=== PATIENT | female | born 1950 | race Caucasian/White ===

== ENCOUNTER 2022-01-15 11:05 | Emergency (ER) | payer OTHER ==
--- NOTE | 2022-01-15 11:33 | ERPHSYRPT ---
- History of Present Illness Time Seen by Provider: 01/15/22 11:33 Source: patient Exam Limitations: no limitations Physician History: This is a 71-year-old white female patient who is a patient at the [facility] who presents not feeling well for the last couple weeks. Her symptoms of cough, headaches, body aches, decreased appetite and mild weakness for the last couple weeks and therefore she took a COVID test on 01/12/2022. This result came back positive. Patient has a history of anxiety and hypothyroidism. Patient has had a little nausea but no vomiting and no diarrhea. She denies chest pain. She states that she does not have much shortness of breath. Timing/Duration: week(s) (1 to 2 weeks), worse Cough Quality/Degree: mild, dry cough Possible Cause: no prior episodes Modifying Factors: Improves With: coughing Associated Symptoms: cough, headache, muscle aches, sore throat, No fever, No chills, No chest pain/soreness, No shortness of breath Allergies/Adverse Reactions: Penicillins Allergy (Verified 01/15/22 11:39) Home Medications: Clonazepam [Klonopin] 0.5 mg PO TID 01/15/22 [History] Levothyroxine Sodium [Levothyroxine] 13 mcg PO DAILY 01/15/22 [History] Melatonin 20 mg PO HS 01/15/22 [History] Quetiapine Fumarate [Seroquel] 300 mg PO BID 01/15/22 [History] Travel Risk - International Travel Have you traveled outside of the country in past 3 weeks: No - Coronavirus Screening Are you exhibiting any of the following symptoms?: Yes Symptoms: Cough: New Onset, Headaches/Body Aches/Fatigue Close contact with a COVID-19 positive Pt in past 14-21 Days: No - Review of Systems Constitutional: Weakness Eyes: No Symptoms Ears, Nose, & Throat: No Symptoms Respiratory: Cough, No Dyspnea Cardiac: No Symptoms, No Chest Pain Abdominal/Gastrointestinal: No Symptoms Genitourinary Symptoms: No Symptoms Musculoskeletal: Arthralgias, Myalgias Skin: No Symptoms Neurological: Headache Psychological: No Symptoms Endocrine: No Symptoms Hematologic/Lymphatic: No Symptoms Immunological/Allergic: No Symptoms All Other Systems: Reviewed and Negative - Nursing Vital Signs Nursing Vital Signs: Initial Vital Signs Temperature 96.7 F 01/15/22 11:20 Pulse Rate 69 01/15/22 11:20 Respiratory Rate 18 01/15/22 11:20 Blood Pressure 129/79 01/15/22 11:20 O2 Sat by Pulse Oximetry 97 01/15/22 11:20 Pain Scale Pain Intensity 9 - Physical Exam General Appearance: no apparent distress, alert, obese Eye Exam: PERRL/EOMI, eyes nml inspection Ears, Nose, Throat Exam: normal ENT inspection, moist mucous membranes Neck Exam: normal inspection, non-tender, supple, full range of motion Respiratory Exam: normal breath sounds, lungs clear, airway intact, No chest tenderness, No respiratory distress Cardiovascular Exam: regular rate/rhythm, normal heart sounds, normal peripheral pulses Gastrointestinal/Abdomen Exam: soft, normal bowel sounds, No tenderness Pelvic Exam: not done Rectal Exam: not done Back Exam: normal inspection, normal range of motion, No CVA tenderness, No vertebral tenderness Extremity Exam: normal inspection, normal range of motion, pelvis stable Neurologic Exam: alert, oriented x 3, cooperative, triage technician II-XII nml as tested, normal mood/affect Skin Exam: normal color, warm, dry Lymphatic Exam: No adenopathy SpO2 Interpretation: normal O2 Delivery: Room Air - Course Nursing assessment & vital signs reviewed: Yes EKG Interpreted by Me: RATE (64), NORMAL AXIS, NORMAL INTERVALS, NORMAL QRS, Non-specific ST Changes, Other (No acute ischemic changes on today's EKG.) Ordered Tests: Active Orders 24 hr Category Date Time Status Depositing Machine Operator STAT Care 01/15/22 12:19 Active EKG-ER Only STAT Care 01/15/22 12:28 Active IV Insertion STAT Care 01/15/22 12:19 Active Pulse Oximetry (ED) STAT Care 01/15/22 12:19 Active CHEST 1 VIEW (PORTABLE) Stat Exams 01/15/22 12:19 Taken BLOOD CULTURE Stat Lab 01/15/22 12:52 Received CBC W DIFF Stat Lab 01/15/22 11:25 Completed CMP Stat Lab 01/15/22 11:25 Completed Lactic Acid Stat Lab 01/15/22 12:28 Completed [place] Screen Stat Lab 01/15/22 12:52 Completed UA W/RFX CULTURE Stat Lab 01/15/22 13:25 Completed Medication Summary Discontinued Medications Generic Name Dose Route Start Last Admin Trade Name Freq PRN Reason Stop Dose Admin Hydrocodone Bitart/Acetaminophen 5 ml 01/15/22 12:32 01/15/22 12:36 Hydrocodone/Acetaminophen 5 Ml Udcup PO 01/15/22 12:33 5 ml STAT STA Administration Hydrocodone Bitart/Acetaminophen Confirm 01/15/22 12:35 Hydrocodone/Acetaminophen 5 Ml Udcup Administered 01/15/22 12:36 Dose 5 ml .ROUTE .STK-MED ONE Methylprednisolone Sodium 0 mg 01/15/22 12:32 01/15/22 12:36 Succinate 125 mg/ Sterile IV 01/15/22 12:33 125 mg Water 2 ml STAT ONE Administration Sodium Chloride 1,000 mls @ 999 mls/hr 01/15/22 12:19 01/15/22 13:32 Sodium Chloride 0.9% 1000 Ml IV 01/15/22 13:19 Infused .Q1H1M STA Infusion Sodium Chloride Confirm 01/15/22 12:30 Sodium Chloride 0.9% 1000 Ml Administered 01/15/22 12:31 Dose 1,000 mls @ ud .ROUTE .STK-MED ONE Methylprednisolone Sodium Succinate Confirm 01/15/22 12:35 Methylprednis Sod Succ 125 Mg/2 Ml Vial Administered 01/15/22 12:36 Dose 125 mg .ROUTE .STK-MED ONE Sterile Water Confirm 01/15/22 12:35 Water For Injection,Sterile 10 Ml Vial Administered 01/15/22 12:36 Dose 10 ml IJ .STK-MED ONE Lab/Rad Data: Laboratory Result Diagrams 01/15/22 11:25 01/15/22 11:25 Laboratory Results 01/15/22 01/15/22 01/15/22 Range/Units 13:25 12:52 12:52 WBC (4.0-10.5) x10^3/uL RBC (4.1-5.4) x10^6/uL Hgb (12.0-16.0) g/dL Hct (35-47) % MCV (78-100) fL MCH (26-32) pg MCHC (32-36) g/dL RDW (11.5-14.0) % Plt Count (150-450) x10^3/uL MPV (7.5-11.0) fL Gran % (36.0-66.0) % Immature Gran % (Auto) (0.00-0.4) % Nucleat RBC Rel Count (0.00-0.1) % Eos # (Auto) (0-0.5) x10^3/uL Immature Gran # (Auto) (0.00-0.03) x10^3u/L Absolute Lymphs (auto) (1.0-4.6) x10^3/uL Absolute Monos (auto) (0.0-1.3) x10^3/uL Absolute Nucleated RBC (0.00-0.01) x10^3u/L Lymphocytes % (24.0-44.0) % Monocytes % (0.0-12.0) % Eosinophils % (0.00-5.0) % Basophils % (0.0-0.4) % Absolute Granulocytes (1.4-6.9) x10^3/uL Basophils # (0-0.4) x10^3/uL Sodium (137-145) mmol/L Potassium (3.5-5.1) mmol/L Chloride (98-107) mmol/L Carbon Dioxide (22-30) mmol/L Anion Gap (5-15) MEQ/L BUN (7-17) mg/dL Creatinine (0.52-1.04) mg/dL Estimated GFR ML/MIN Glucose (74-106) mg/dL Lactic Acid (0.4-2.0) Calcium (8.4-10.2) mg/dL Total Bilirubin (0.2-1.3) mg/dL AST (14-36) U/L ALT (0-35) U/L Alkaline Phosphatase (38-126) U/L Serum Total Protein (6.3-8.2) g/dL Albumin (3.5-5.0) g/dL Urinalys Dipstick Clnc MAIN LAB Urine Color YELLOW (YELLOW) Urine Appearance CLEAR (CLEAR) Urine pH 6.0 (5-6) Ur Specific Nunda 1.025 (1.005-1.025) POC Urine Protein Conf NEGATIVE (Negative) Urine Ketones NEGATIVE (NEGATIVE) Urine Nitrite NEGATIVE (NEGATIVE) Urine Bilirubin NEGATIVE (NEGATIVE) Urine Urobilinogen 0.2 (0-1) mg/dL Urine Leukocytes NEGATIVE (NEGATIVE) Urine WBC (Auto) NONE (0-5) /HPF Urine RBC (Auto) NONE (0-2) /HPF U Epithel Cells (Auto) NONE (FEW) /HPF Urine Bacteria (Auto) RARE (NEGATIVE) /HPF Urine RBC NEGATIVE (0-5) Irving/ul Urine Mucus (Auto) SLIGHT A (NEGATIVE) /HPF Ur Culture Indicated? NO Urine Glucose NEGATIVE (NEGATIVE) mg/dL Monoscreen NEGATIVE (Negative) Influenza Type A Ag (NEGATIVE) Influenza Type B Ag (NEGATIVE) RSV (PCR) (Negative) SARS-CoV-2 (PCR) (NEGATIVE) Group A Strep Antibody NOT DETECTED (NEGATIVE) 01/15/22 01/15/22 01/15/22 Range/Units 12:28 11:30 11:25 WBC (4.0-10.5) x10^3/uL RBC (4.1-5.4) x10^6/uL Hgb (12.0-16.0) g/dL Hct (35-47) % MCV (78-100) fL MCH (26-32) pg MCHC (32-36) g/dL RDW (11.5-14.0) % Plt Count (150-450) x10^3/uL MPV (7.5-11.0) fL Gran % (36.0-66.0) % Immature Gran % (Auto) (0.00-0.4) % Nucleat RBC Rel Count (0.00-0.1) % Eos # (Auto) (0-0.5) x10^3/uL Immature Gran # (Auto) (0.00-0.03) x10^3u/L Absolute Lymphs (auto) (1.0-4.6) x10^3/uL Absolute Monos (auto) (0.0-1.3) x10^3/uL Absolute Nucleated RBC (0.00-0.01) x10^3u/L Lymphocytes % (24.0-44.0) % Monocytes % (0.0-12.0) % Eosinophils % (0.00-5.0) % Basophils % (0.0-0.4) % Absolute Granulocytes (1.4-6.9) x10^3/uL Basophils # (0-0.4) x10^3/uL Sodium 138 (137-145) mmol/L Potassium 3.8 (3.5-5.1) mmol/L Chloride 102 (98-107) mmol/L Carbon Dioxide 33 H (22-30) mmol/L Anion Gap 7.9 (5-15) MEQ/L BUN 10 (7-17) mg/dL Creatinine 0.65 (0.52-1.04) mg/dL Estimated GFR > 60.0 ML/MIN Glucose 123 H (74-106) mg/dL Lactic Acid 3.3 H (0.4-2.0) Calcium 8.5 (8.4-10.2) mg/dL Total Bilirubin 0.40 (0.2-1.3) mg/dL AST 21 (14-36) U/L ALT 10 (0-35) U/L Alkaline Phosphatase 99 (38-126) U/L Serum Total Protein 6.6 (6.3-8.2) g/dL Albumin 3.4 L (3.5-5.0) g/dL Urinalys Dipstick Clnc Urine Color (YELLOW) Urine Appearance (CLEAR) Urine pH (5-6) Ur Specific Nunda (1.005-1.025) POC Urine Protein Conf (Negative) Urine Ketones (NEGATIVE) Urine Nitrite (NEGATIVE) Urine Bilirubin (NEGATIVE) Urine Urobilinogen (0-1) mg/dL Urine Leukocytes (NEGATIVE) Urine WBC (Auto) (0-5) /HPF Urine RBC (Auto) (0-2) /HPF U Epithel Cells (Auto) (FEW) /HPF Urine Bacteria (Auto) (NEGATIVE) /HPF Urine RBC (0-5) Irving/ul Urine Mucus (Auto) (NEGATIVE) /HPF Ur Culture Indicated? Urine Glucose (NEGATIVE) mg/dL Monoscreen (Negative) Influenza Type A Ag NEGATIVE (NEGATIVE) Influenza Type B Ag NEGATIVE (NEGATIVE) RSV (PCR) NEGATIVE (Negative) SARS-CoV-2 (PCR) POSITIVE A (NEGATIVE) Group A Strep Antibody (NEGATIVE) 01/15/22 Range/Units 11:25 WBC 5.5 (4.0-10.5) x10^3/uL RBC 4.89 (4.1-5.4) x10^6/uL Hgb 14.9 (12.0-16.0) g/dL Hct 47.2 H (35-47) % MCV 96.5 (78-100) fL MCH 30.5 (26-32) pg MCHC 31.6 L (32-36) g/dL RDW 15.1 H (11.5-14.0) % Plt Count 159 (150-450) x10^3/uL MPV 11.9 H (7.5-11.0) fL Gran % 56.0 (36.0-66.0) % Immature Gran % (Auto) 0.4 (0.00-0.4) % Nucleat RBC Rel Count 0.0 (0.00-0.1) % Eos # (Auto) 0.16 (0-0.5) x10^3/uL Immature Gran # (Auto) 0.02 (0.00-0.03) x10^3u/L Absolute Lymphs (auto) 1.84 (1.0-4.6) x10^3/uL Absolute Monos (auto) 0.34 (0.0-1.3) x10^3/uL Absolute Nucleated RBC 0.00 (0.00-0.01) x10^3u/L Lymphocytes % 33.4 (24.0-44.0) % Monocytes % 6.2 (0.0-12.0) % Eosinophils % 2.9 (0.00-5.0) % Basophils % 1.1 (0.0-0.4) % Absolute Granulocytes 3.09 (1.4-6.9) x10^3/uL Basophils # 0.06 (0-0.4) x10^3/uL Sodium (137-145) mmol/L Potassium (3.5-5.1) mmol/L Chloride (98-107) mmol/L Carbon Dioxide (22-30) mmol/L Anion Gap (5-15) MEQ/L BUN (7-17) mg/dL Creatinine (0.52-1.04) mg/dL Estimated GFR ML/MIN Glucose (74-106) mg/dL Lactic Acid (0.4-2.0) Calcium (8.4-10.2) mg/dL Total Bilirubin (0.2-1.3) mg/dL AST (14-36) U/L ALT (0-35) U/L Alkaline Phosphatase (38-126) U/L Serum Total Protein (6.3-8.2) g/dL Albumin (3.5-5.0) g/dL Urinalys Dipstick Clnc Urine Color (YELLOW) Urine Appearance (CLEAR) Urine pH (5-6) Ur Specific Nunda (1.005-1.025) POC Urine Protein Conf (Negative) Urine Ketones (NEGATIVE) Urine Nitrite (NEGATIVE) Urine Bilirubin (NEGATIVE) Urine Urobilinogen (0-1) mg/dL Urine Leukocytes (NEGATIVE) Urine WBC (Auto) (0-5) /HPF Urine RBC (Auto) (0-2) /HPF U Epithel Cells (Auto) (FEW) /HPF Urine Bacteria (Auto) (NEGATIVE) /HPF Urine RBC (0-5) Irving/ul Urine Mucus (Auto) (NEGATIVE) /HPF Ur Culture Indicated? Urine Glucose (NEGATIVE) mg/dL Monoscreen (Negative) Influenza Type A Ag (NEGATIVE) Influenza Type B Ag (NEGATIVE) RSV (PCR) (Negative) SARS-CoV-2 (PCR) (NEGATIVE) Group A Strep Antibody (NEGATIVE) - Progress Progress: improved, re-examined Air Movement: good Progress Note: 01/15/22 14:09 Chest x-ray shows bibasilar groundglass opacities consistent with COVID-19 infection. Blood Culture(s) Obtained: Yes Antibiotics given: No Counseled pt/family regarding: lab results, diagnosis, need for follow-up, rad results - Departure Departure Disposition: Home Clinical Impression: COVID-19 virus infection Condition: Stable Critical Care Time: No Referrals: [facility]OSP[facility],'S [Primary Care Provider] - Follow up/PCP as directed Additional Instructions: Drink plenty of fluids. Take your medication as prescribed. Return to the emergency department if symptoms worsen. Prescriptions: Hydrocodone/Acetaminophen [Hydrocodone-Acetamn 7.5-325/15] 5 ml PO Q8H PRN PRN #60 ml MDD 15 ml PRN Reason: Cough Prednisone 5 mg [Deltasone 5 mg] 5 mg PO TID #12 tablet
[2022-01-15] MEDS ORDERED: Sodium Chloride 0.9% 1000 ML 1,000 ML IV STA ×2 (12:19→14:08)
[2022-01-15 12:28] LABS: Absolute Neutrophil Ct (ANC) 3.09 x10^3/uL (1.4-6.9); Basophil (Absolute #) 0.06 x10^3/uL (0-0.4); Eosinophil % 2.9 % (0.00-5.0); Eosinophil (Absolute #) 0.16 x10^3/uL (0-0.5); Hematocrit 47.2 % (35-47); Hemoglobin 14.9 g/dL (12.0-16.0); Lymphocyte (Absolute #) 1.84 x10^3/uL (1.0-4.6); Lymphocytes % 33.4 % (24.0-44.0); Mean Cell Volume 96.5 fL (78-100); Mean Corpuscular Hemoglobin 30.5 pg (26-32); Mean Corpuscular Hgb Concent. 31.6 g/dL (32-36); Mean Platelet Volume 11.9 fL (7.5-11.0); Monocyte (Absolute #) 0.34 x10^3/uL (0.0-1.3); Monocytes % 6.2 % (0.0-12.0); Platelet Count 159 x10^3/uL (150-450); Red Blood Count 4.89 x10^6/uL (4.1-5.4); Red Cell Distribution Width 15.1 % (11.5-14.0); White Blood Count 5.5 x10^3/uL (4.0-10.5)
[2022-01-15] MEDS ORDERED: Sodium Chloride 0.9% 1000 ML 1,000 ML ONE ×2 (12:30→14:21)
[2022-01-15] MEDS ORDERED: HYDROCODONE-ACETAMIN 2.5-108/5 ML SOLUTION PO STA (12:32)
[2022-01-15] MEDS ORDERED: solu-MEDROL 125 MG, Sterile H2O 10 ml 2 ML IV ONE ×2 (12:32)
[2022-01-15] MEDS ORDERED: Sterile H2O 10 ml IJ ONE (12:35)
[2022-01-15] MEDS ORDERED: solu-MEDROL ONE (12:35)
[2022-01-15] MEDS ORDERED: HYDROCODONE-ACETAMIN 2.5-108/5 ML SOLUTION ONE (12:35)
[2022-01-15 13:07] LABS: INFLUENZA A NEGATIVE (NEGATIVE); INFLUENZA B NEGATIVE (NEGATIVE); RESPIRATORY SYNCTIAL VIRUS NEGATIVE (Negative)
[2022-01-15 13:18] LABS: SARS-CoV-2 Xpert Express POSITIVE (NEGATIVE)
[2022-01-15 13:27] VITALS: BP 160/88
[2022-01-15 13:37] LABS: ALBUMIN 3.4 g/dL (3.5-5.0); ALKALINE PHOSPHATASE 99 U/L (38-126); ANION GAP 7.9 MEQ/L (5-15); BLOOD UREA NITROGEN 10 mg/dL (7-17); CHLORIDE 102 mmol/L (98-107); Calcium 8.5 mg/dL (8.4-10.2); Carbon Dioxide 33 mmol/L (22-30); Creatinine 1 0.65 mg/dL (0.52-1.04); EST GLOMERULAR FILTRATION RATE > 60.0 ML/MIN; Glucose 123 mg/dL (74-106); Potassium 3.8 mmol/L (3.5-5.1); SGOT/AST 21 U/L (14-36); SGPT/ALT 10 U/L (0-35); SODIUM 138 mmol/L (137-145); Total Protein 6.6 g/dL (6.3-8.2)
[2022-01-15 13:46] LABS: Appearance CLEAR (CLEAR); Bacteria RARE /HPF (NEGATIVE); Bilirubin NEGATIVE (NEGATIVE); Glucose NEGATIVE (NEGATIVE); Ketones NEGATIVE (NEGATIVE); Mucus SLIGHT /HPF (NEGATIVE); RBC NEGATIVE Ery/ul (0-5); Specific Gravity 1.025 (1.005-1.025)
[2022-01-15 13:47] LABS: Dipstick done @ ? MAIN LAB; Nitrite NEGATIVE (NEGATIVE); Protein,Urine Dip NEGATIVE (Negative); Urine Cultured Indicated? NO; Urobilinogen 0.2 mg/dL (0-1)
[2022-01-15 14:04] VITALS: PULSE 74; O2SAT 94
--- NOTE | 2022-01-15 19:13 | XRAY ---
Indication: Cough. Positive Covid 19. Comparison: None Portable chest demonstrates hazy right base groundglass airspace disease. Incidental scattered tiny calcified granulomas. Heart not enlarged for portable technique. Bony thorax intact with mild osteopenia and degenerative changes.
== END 2022-01-15 14:42 | disposition home or self-care (01) ==
LOC: ED 11:05
DX: U07.1 COVID-19 (principal); R05.9 Cough, unspecified; R51.9 Headache, unspecified; M79.10 Myalgia, unspecified site; R53.1 Weakness; Z79.891 Long term (current) use of opiate analgesic; Z79.52 Long term (current) use of systemic steroids; Z79.899 Other long term (current) drug therapy
CPT/HCPCS: 0241U; 36000; 36415; 71045; 80053; 81015; 83605; 85025; 86308; 87040; 87651; 93005; 93041; 94760; 96360; 96374; 99284; 96361; J2930; A9270-GY

== ENCOUNTER 2022-01-21 23:15 | Emergency (ER) | payer OTHER ==
--- NOTE | 2022-01-21 23:48 | ERPHSYRPT ---
- History of Present Illness Time Seen by Provider: 01/21/22 23:48 Source: patient, family Exam Limitations: no limitations Patient Subjective Stated Complaint: son states "She has covid and is not getting better." Triage Nursing Assessment: pt came into the er via wheelchair; pt is axo x2; c/o "not feeling well"; pt denies pain; clear lung sounds in all lobes; active bowel sounds in all quads; denies N/V/D; no cough present; vitals wnl; skin PDW Physician History: This is a 71-year-old white female patient who returns emergency department after being evaluated on 01/15/2022 for similar but worsening symptoms of flu. While home, the patient's appetite has decreased. She is also had change in her mental status. She is not eating or drinking well per patient's son. Patient was diagnosed with COVID-19 infection but family is concerned because she is not actually worse and not improving. She has no chest pain. She does not complain of shortness of breath but she does have a cough. She has no abdominal pain. She has had no vomiting or diarrhea. She was discharged home with hydrocodone elixir for her cough and prednisone also for her cough. She has not had a measured fever at home. Patient has history of anxiety and hypothyroidism Timing/Duration: day(s), worse Cough Quality/Degree: mild Possible Cause: no prior episodes Associated Symptoms: cough, muscle aches, shortness of breath Allergies/Adverse Reactions: Penicillins Allergy (Verified 01/21/22 23:24) Home Medications: Clonazepam [Klonopin] 0.5 mg PO TID 01/15/22 [History] Levothyroxine Sodium [Levothyroxine] 13 mcg PO DAILY 01/15/22 [History] Melatonin 20 mg PO HS 01/15/22 [History] Quetiapine Fumarate [Seroquel] 300 mg PO BID 01/15/22 [History] Hx Tetanus, Diphtheria Vaccination/Date Given: No (unknown) Hx Influenza Vaccination/Date Given: No Hx Pneumococcal Vaccination/Date Given: No Travel Risk - International Travel Have you traveled outside of the country in past 3 weeks: No - Coronavirus Screening Are you exhibiting any of the following symptoms?: Yes Symptoms: Cough: New Onset, Headaches/Body Aches/Fatigue Close contact with a COVID-19 positive Pt in past 14-21 Days: Yes - Vaccine Status Have you recieved a Covid-19 vaccination: No - Review of Systems Constitutional: Weakness Eyes: No Symptoms Ears, Nose, & Throat: No Symptoms Respiratory: Cough Cardiac: No Symptoms Abdominal/Gastrointestinal: Appetite Changes, No Abdominal Pain, No Nausea, No Vomiting, No Diarrhea Genitourinary Symptoms: No Symptoms Musculoskeletal: Arthralgias, Myalgias Skin: No Symptoms Neurological: Other (Altered mental status per family) Psychological: No Symptoms Endocrine: No Symptoms Hematologic/Lymphatic: No Symptoms Immunological/Allergic: No Symptoms All Other Systems: Reviewed and Negative - Past Medical History Pertinent Past Medical History: Yes Cardiac History: High Cholesterol Endocrine Medical History: Hypothyroidism Musculoskeletal History: Osteoporosis GI Medical History: Irritable Bowel Psycho-Social History: Anxiety, Depression - Past Surgical History Past Surgical History: Yes Musculoskeletal: Orthopedic Surgery Female Surgical History: Tubal Ligation, Lumpectomy Other Surgical History: lumpectomy in breast several times, lump in foot, biopsy of cervix that was precancerous - Social History Smoking Status: Current every day smoker Exposure to second hand smoke: Yes Drug Use: none Patient Lives Alone: No - Nursing Vital Signs Nursing Vital Signs: Initial Vital Signs Temperature 98.8 F 01/21/22 23:27 Pulse Rate 85 01/21/22 23:27 Respiratory Rate 14 01/21/22 23:27 Blood Pressure 140/91 01/21/22 23:27 O2 Sat by Pulse Oximetry 94 L 01/21/22 23:27 Pain Scale Pain Intensity 0 - Physical Exam General Appearance: no apparent distress, alert, anxiety Eye Exam: PERRL/EOMI, eyes nml inspection Ears, Nose, Throat Exam: pharynx normal, dry mucous membranes Neck Exam: normal inspection, non-tender, supple, full range of motion Respiratory Exam: airway intact, rhonchi (Mild rhonchi left greater than right), No chest tenderness, No respiratory distress, No accessory muscle use Cardiovascular Exam: regular rate/rhythm, normal heart sounds, normal peripheral pulses Gastrointestinal/Abdomen Exam: soft, normal bowel sounds, No tenderness Pelvic Exam: not done Rectal Exam: not done Back Exam: normal inspection, normal range of motion, No CVA tenderness, No vertebral tenderness Extremity Exam: normal inspection, normal range of motion, pelvis stable Neurologic Exam: alert, oriented x 3, cooperative, plant anatomist II-XII 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 as tested, normal mood/affect Skin Exam: normal color, warm, dry Lymphatic Exam: No adenopathy SpO2 Interpretation: borderline oxygenation SpO2: 94 O2 Delivery: Room Air Ordered Tests: Active Orders 24 hr Category Date Time 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 Care 01/22/22 00:09 Active IV Insertion STAT Care 01/22/22 00:09 Active Pulse Oximetry (ED) STAT Care 01/22/22 00:09 Active HEAD WITHOUT CONTRAST [CT] Stat Exams 01/22/22 00:10 Taken BLOOD CULTURE Stat Lab 01/22/22 00:42 Received CBC W DIFF Stat Lab 01/22/22 00:10 Completed CMP Stat Lab 01/22/22 00:10 Completed CULTURE,URINE Stat Lab 01/22/22 00:42 Received Lactic Acid Stat Lab 01/22/22 00:31 Completed [place] Screen Stat Lab 01/22/22 00:10 Completed UA W/RFX CULTURE Stat Lab 01/22/22 00:42 Completed Medication Summary Generic Name Dose Route Start Last Admin Trade Name Freq PRN Reason Stop Dose Admin Levofloxacin/Dextrose 500 mg in 100 mls @ 100 mls/hr 01/22/22 01:12 01/22/22 01:46 Levofloxacin 500mg/100ml D5w IV 01/22/22 02:11 100 mls/hr STAT STA 100 mls/hr Administration Sodium Chloride 500 mls @ 500 mls/hr 01/22/22 01:22 01/22/22 01:46 Sodium Chloride 0.9% 500 Ml IV 01/22/22 02:21 500 mls/hr .Q1H ONE Administration Discontinued Medications Generic Name Dose Route Start Last Admin Trade Name Freq PRN Reason Stop Dose Admin Sodium Chloride 1,000 mls @ 999 mls/hr 01/22/22 00:09 01/22/22 01:32 Sodium Chloride 0.9% 1000 Ml IV 01/22/22 01:09 Infused .Q1H1M STA Infusion Sodium Chloride Confirm 01/22/22 00:24 Sodium Chloride 0.9% 1000 Ml Administered 01/22/22 00:25 Dose 1,000 mls @ ud .ROUTE .STK-MED ONE Levofloxacin/Dextrose Confirm 01/22/22 01:44 Levofloxacin 500mg/100ml D5w Administered 01/22/22 01:45 Dose 500 mg in 100 mls @ ud IV .STK-MED ONE Sodium Chloride Confirm 01/22/22 01:44 Sodium Chloride 0.9% 500 Ml Administered 01/22/22 01:45 Dose 500 mls @ ud IV .STK-MED ONE Ondansetron HCl 4 mg 01/22/22 00:09 01/22/22 00:25 Ondansetron Hcl 4 Mg/2 Ml Vial IV 01/22/22 00:10 4 mg STAT STA Administration Ondansetron HCl Confirm 01/22/22 00:24 Ondansetron Hcl 4 Mg/2 Ml Vial Administered 01/22/22 00:25 Dose 4 mg .ROUTE .STK-MED ONE Potassium Chloride 20 meq 01/22/22 00:58 01/22/22 01:02 Potassium Chloride Tab 10 Meq Tab PO 01/22/22 00:59 20 meq STAT ONE Administration Potassium Chloride Confirm 01/22/22 01:01 Potassium Chloride Tab 10 Meq Tab Administered 01/22/22 01:02 Dose 20 meq PO .STK-MED ONE Lab/Rad Data: Laboratory Result Diagrams 01/22/22 00:10 01/22/22 00:10 Laboratory Results 01/22/22 01/22/22 01/22/22 Range/Units 00:42 00:42 00:42 WBC (4.0-10.5) x10^3/uL RBC (4.1-5.4) x10^6/uL Hgb (12.0-16.0) g/dL Hct (35-47) % MCV (78-100) fL MCH (26-32) pg MCHC (32-36) g/dL RDW (11.5-14.0) % Plt Count (150-450) x10^3/uL MPV (7.5-11.0) fL Gran % (36.0-66.0) % Immature Gran % (Auto) (0.00-0.4) % Nucleat RBC Rel Count (0.00-0.1) % Eos # (Auto) (0-0.5) x10^3/uL Immature Gran # (Auto) (0.00-0.03) x10^3u/L Absolute Lymphs (auto) (1.0-4.6) x10^3/uL Absolute Monos (auto) (0.0-1.3) x10^3/uL Absolute Nucleated RBC (0.00-0.01) x10^3u/L Lymphocytes % (24.0-44.0) % Monocytes % (0.0-12.0) % Eosinophils % (0.00-5.0) % Basophils % (0.0-0.4) % Absolute Granulocytes (1.4-6.9) x10^3/uL Basophils # (0-0.4) x10^3/uL Sodium (137-145) mmol/L Potassium (3.5-5.1) mmol/L Chloride (98-107) mmol/L Carbon Dioxide (22-30) mmol/L Anion Gap (5-15) MEQ/L BUN (7-17) mg/dL Creatinine (0.52-1.04) mg/dL Estimated GFR ML/MIN Glucose (74-106) mg/dL Lactic Acid (0.4-2.0) Calcium (8.4-10.2) mg/dL Total Bilirubin (0.2-1.3) mg/dL AST (14-36) U/L ALT (0-35) U/L Alkaline Phosphatase (38-126) U/L Serum Total Protein (6.3-8.2) g/dL Albumin (3.5-5.0) g/dL Urinalys Dipstick Clnc MAIN LAB Urine Color YELLOW (YELLOW) Urine Appearance CLEAR (CLEAR) Urine pH 6.0 (5-6) Ur Specific [place] 1.025 (1.005-1.025) POC Urine Protein Conf TRACE A (Negative) Urine Ketones NEGATIVE (NEGATIVE) Urine Nitrite NEGATIVE (NEGATIVE) Urine Bilirubin NEGATIVE (NEGATIVE) Urine Urobilinogen 0.2 (0-1) mg/dL Urine Leukocytes MODERATE A (NEGATIVE) Urine WBC (Auto) 16-25 A (0-5) /HPF Urine RBC (Auto) 3-5 A (0-2) /HPF U Epithel Cells (Auto) RARE (FEW) /HPF Urine Bacteria (Auto) RARE (NEGATIVE) /HPF Urine RBC NEGATIVE (0-5) [place]/ul Urine Mucus (Auto) SLIGHT A (NEGATIVE) /HPF Ur Culture Indicated? YES Urine Glucose NEGATIVE (NEGATIVE) mg/dL Monoscreen (Negative) Influenza Type A Ag NEGATIVE (NEGATIVE) Influenza Type B Ag NEGATIVE (NEGATIVE) RSV (PCR) NEGATIVE (Negative) SARS-CoV-2 (PCR) NEGATIVE (NEGATIVE) Group A Strep Antibody NOT DETECTED (NEGATIVE) 01/22/22 01/22/22 01/22/22 Range/Units 00:31 00:10 00:10 WBC (4.0-10.5) x10^3/uL RBC (4.1-5.4) x10^6/uL Hgb (12.0-16.0) g/dL Hct (35-47) % MCV (78-100) fL MCH (26-32) pg MCHC (32-36) g/dL RDW (11.5-14.0) % Plt Count (150-450) x10^3/uL MPV (7.5-11.0) fL Gran % (36.0-66.0) % Immature Gran % (Auto) (0.00-0.4) % Nucleat RBC Rel Count (0.00-0.1) % Eos # (Auto) (0-0.5) x10^3/uL Immature Gran # (Auto) (0.00-0.03) x10^3u/L Absolute Lymphs (auto) (1.0-4.6) x10^3/uL Absolute Monos (auto) (0.0-1.3) x10^3/uL Absolute Nucleated RBC (0.00-0.01) x10^3u/L Lymphocytes % (24.0-44.0) % Monocytes % (0.0-12.0) % Eosinophils % (0.00-5.0) % Basophils % (0.0-0.4) % Absolute Granulocytes (1.4-6.9) x10^3/uL Basophils # (0-0.4) x10^3/uL Sodium 135 L (137-145) mmol/L Potassium 3.3 L (3.5-5.1) mmol/L Chloride 96 L (98-107) mmol/L Carbon Dioxide 36 H (22-30) mmol/L Anion Gap 7.1 (5-15) MEQ/L BUN 10 (7-17) mg/dL Creatinine 0.65 (0.52-1.04) mg/dL Estimated GFR > 60.0 ML/MIN Glucose 101 (74-106) mg/dL Lactic Acid 1.9 (0.4-2.0) Calcium 8.5 (8.4-10.2) mg/dL Total Bilirubin 0.60 (0.2-1.3) mg/dL AST 17 (14-36) U/L ALT 11 (0-35) U/L Alkaline Phosphatase 113 (38-126) U/L Serum Total Protein 6.6 (6.3-8.2) g/dL Albumin 3.7 (3.5-5.0) g/dL Urinalys Dipstick Clnc Urine Color (YELLOW) Urine Appearance (CLEAR) Urine pH (5-6) Ur Specific [place] (1.005-1.025) POC Urine Protein Conf (Negative) Urine Ketones (NEGATIVE) Urine Nitrite (NEGATIVE) Urine Bilirubin (NEGATIVE) Urine Urobilinogen (0-1) mg/dL Urine Leukocytes (NEGATIVE) Urine WBC (Auto) (0-5) /HPF Urine RBC (Auto) (0-2) /HPF U Epithel Cells (Auto) (FEW) /HPF Urine Bacteria (Auto) (NEGATIVE) /HPF Urine RBC (0-5) Irving/ul Urine Mucus (Auto) (NEGATIVE) /HPF Ur Culture Indicated? Urine Glucose (NEGATIVE) mg/dL Monoscreen NEGATIVE (Negative) Influenza Type A Ag (NEGATIVE) Influenza Type B Ag (NEGATIVE) RSV (PCR) (Negative) SARS-CoV-2 (PCR) (NEGATIVE) Group A Strep Antibody (NEGATIVE) 01/22/22 Range/Units 00:10 WBC 9.5 (4.0-10.5) x10^3/uL RBC 4.93 (4.1-5.4) x10^6/uL Hgb 14.8 (12.0-16.0) g/dL Hct 46.0 (35-47) % MCV 93.3 (78-100) fL MCH 30.0 (26-32) pg MCHC 32.2 (32-36) g/dL RDW 15.0 H (11.5-14.0) % Plt Count 236 (150-450) x10^3/uL MPV 10.7 (7.5-11.0) fL Gran % 69.0 H (36.0-66.0) % Immature Gran % (Auto) 0.3 (0.00-0.4) % Nucleat RBC Rel Count 0.0 (0.00-0.1) % Eos # (Auto) 0.07 (0-0.5) x10^3/uL Immature Gran # (Auto) 0.03 (0.00-0.03) x10^3u/L Absolute Lymphs (auto) 2.02 (1.0-4.6) x10^3/uL Absolute Monos (auto) 0.77 (0.0-1.3) x10^3/uL Absolute Nucleated RBC 0.00 (0.00-0.01) x10^3u/L Lymphocytes % 21.3 L (24.0-44.0) % Monocytes % 8.1 (0.0-12.0) % Eosinophils % 0.7 (0.00-5.0) % Basophils % 0.6 (0.0-0.4) % Absolute Granulocytes 6.54 (1.4-6.9) x10^3/uL Basophils # 0.06 (0-0.4) x10^3/uL Sodium (137-145) mmol/L Potassium (3.5-5.1) mmol/L Chloride (98-107) mmol/L Carbon Dioxide (22-30) mmol/L Anion Gap (5-15) MEQ/L BUN (7-17) mg/dL Creatinine (0.52-1.04) mg/dL Estimated GFR ML/MIN Glucose (74-106) mg/dL Lactic Acid (0.4-2.0) Calcium (8.4-10.2) mg/dL Total Bilirubin (0.2-1.3) mg/dL AST (14-36) U/L ALT (0-35) U/L Alkaline Phosphatase (38-126) U/L Serum Total Protein (6.3-8.2) g/dL Albumin (3.5-5.0) g/dL Urinalys Dipstick Clnc Urine Color (YELLOW) Urine Appearance (CLEAR) Urine pH (5-6) Ur Specific [place] (1.005-1.025) POC Urine Protein Conf (Negative) Urine Ketones (NEGATIVE) Urine Nitrite (NEGATIVE) Urine Bilirubin (NEGATIVE) Urine Urobilinogen (0-1) mg/dL Urine Leukocytes (NEGATIVE) Urine WBC (Auto) (0-5) /HPF Urine RBC (Auto) (0-2) /HPF U Epithel Cells (Auto) (FEW) /HPF Urine Bacteria (Auto) (NEGATIVE) /HPF Urine RBC (0-5) [place]/ul Urine Mucus (Auto) (NEGATIVE) /HPF Ur Culture Indicated? Urine Glucose (NEGATIVE) mg/dL Monoscreen (Negative) Influenza Type A Ag (NEGATIVE) Influenza Type B Ag (NEGATIVE) RSV (PCR) (Negative) SARS-CoV-2 (PCR) (NEGATIVE) Group A Strep Antibody (NEGATIVE) - Progress Progress: improved Air Movement: good Progress Note: 01/22/22 01:48 Medically, the patient states she is feeling better. She appears more awake alert and oriented. She is conversant. Blood Culture(s) Obtained: Yes Antibiotics given: Yes Counseled pt/family regarding: lab results, diagnosis, need for follow-up, rad results - Departure Departure Disposition: Home Clinical Impression: UTI (urinary tract infection), COVID-19 virus infection Condition: Stable Critical Care Time: No Referrals: HOSPITAL,'S [Primary Care Provider] - Follow up/PCP as directed Additional Instructions: Drink plenty of clear liquids before advancing diet. Take your antibiotics as prescribed. Prescriptions: Ciprofloxacin [Cipro 500 MG] 500 mg PO BID #14 tablet
[2022-01-22] MEDS ORDERED: Zofran 4 MG/2 ML VIAL IV STA (00:09)
[2022-01-22] MEDS ORDERED: Sodium Chloride 0.9% 1000 ML 1,000 ML IV STA (00:09)
[2022-01-22 00:21] LABS: Absolute Neutrophil Ct (ANC) 6.54 x10^3/uL (1.4-6.9); Basophil (Absolute #) 0.06 x10^3/uL (0-0.4); Eosinophil % 0.7 % (0.00-5.0); Eosinophil (Absolute #) 0.07 x10^3/uL (0-0.5); Hemoglobin 14.8 g/dL (12.0-16.0); Lymphocyte (Absolute #) 2.02 x10^3/uL (1.0-4.6); Lymphocytes % 21.3 % (24.0-44.0); Mean Cell Volume 93.3 fL (78-100); Mean Corpuscular Hgb Concent. 32.2 g/dL (32-36); Mean Platelet Volume 10.7 fL (7.5-11.0); Monocyte (Absolute #) 0.77 x10^3/uL (0.0-1.3); Monocytes % 8.1 % (0.0-12.0); Platelet Count 236 x10^3/uL (150-450); Red Blood Count 4.93 x10^6/uL (4.1-5.4); White Blood Count 9.5 x10^3/uL (4.0-10.5)
[2022-01-22] MEDS ORDERED: Sodium Chloride 0.9% 1000 ML 1,000 ML ONE (00:24)
[2022-01-22] MEDS ORDERED: Zofran 4 MG/2 ML VIAL ONE (00:24)
[2022-01-22 00:36] LABS: ALBUMIN 3.7 g/dL (3.5-5.0); ALKALINE PHOSPHATASE 113 U/L (38-126); ANION GAP 7.1 MEQ/L (5-15); BLOOD UREA NITROGEN 10 mg/dL (7-17); CHLORIDE 96 mmol/L (98-107); Calcium 8.5 mg/dL (8.4-10.2); Carbon Dioxide 36 mmol/L (22-30); Creatinine 1 0.65 mg/dL (0.52-1.04); EST GLOMERULAR FILTRATION RATE > 60.0 ML/MIN; Glucose 101 mg/dL (74-106); Potassium 3.3 mmol/L (3.5-5.1); SGOT/AST 17 U/L (14-36); SGPT/ALT 11 U/L (0-35); SODIUM 135 mmol/L (137-145); Total Protein 6.6 g/dL (6.3-8.2)
[2022-01-22] MEDS ORDERED: Klor Con PO ONE ×2 (00:58→01:01)
[2022-01-22 01:06] LABS: Appearance CLEAR (CLEAR); Bilirubin NEGATIVE (NEGATIVE); Dipstick done @ ? MAIN LAB; Glucose NEGATIVE (NEGATIVE); Ketones NEGATIVE (NEGATIVE); Nitrite NEGATIVE (NEGATIVE); Protein,Urine Dip TRACE (Negative); RBC NEGATIVE Ery/ul (0-5); Specific Gravity 1.025 (1.005-1.025); Urobilinogen 0.2 mg/dL (0-1)
[2022-01-22] MEDS ORDERED: Levofloxacin 500MG/100ML D5W 500 MG/100 ML BAG IV STA (01:12)
[2022-01-22 01:22] LABS: Bacteria RARE /HPF (NEGATIVE); Epithelial Cells RARE /HPF (FEW); Mucus SLIGHT /HPF (NEGATIVE)
[2022-01-22] MEDS ORDERED: Sodium Chloride 0.9% 500 ML 500 ML IV ONE ×2 (01:22→01:44)
[2022-01-22 01:27] LABS: Urine Cultured Indicated? YES
[2022-01-22 01:36] LABS: INFLUENZA A NEGATIVE (NEGATIVE); INFLUENZA B NEGATIVE (NEGATIVE); RESPIRATORY SYNCTIAL VIRUS NEGATIVE (Negative); SARS-CoV-2 Xpert Express NEGATIVE (NEGATIVE)
[2022-01-22] MEDS ORDERED: Levofloxacin 500MG/100ML D5W 500 MG/100 ML BAG IV ONE (01:44)
[2022-01-22 02:48] VITALS: O2SAT 95
[2022-01-22 03:09] VITALS: BP 148/89; PULSE 67
--- NOTE | 2022-01-22 08:53 | XRAY ---
Indication: Altered mental status. Multiple contiguous axial images obtained through the head without contrast. Comparison: None Age-appropriate global atrophy and mild/moderate periventricular degenerative micro-ischemia bilaterally. Remote lacunar infarct left basal ganglia. No acute intracranial hemorrhage, abnormal extra-axial fluid collection, or mass effect. Fourth ventricle is midline without hydrocephalus. Bony calvarium intact. Visualized paranasal sinuses and mastoid air cells are clear. Impression: Nonacute senile brain with remote lacunar infarct left basal ganglia. Comment: Preliminary interpretation made by [facility]. No critical discrepancy.
== END 2022-01-22 03:09 | disposition home or self-care (01) ==
LOC: ED 23:15
DX: U07.1 COVID-19 (principal); N39.0 Urinary tract infection, site not specified; R41.82 Altered mental status, unspecified; R05.9 Cough, unspecified; E78.5 Hyperlipidemia, unspecified; Z72.0 Tobacco use; Z79.899 Other long term (current) drug therapy; Z28.310 Unvaccinated for COVID-19
CPT/HCPCS: 0241U; 36000; 36415; 70450; 80053; 81015; 83605; 85025; 86308; 87040; 87086; 87651; 93041; 94760; 96360; 96374; 99284; 96365; J1956; J2405; A9270-GY

== ENCOUNTER 2022-03-04 14:06 | Observation (INO) | payer OTHER ==
--- NOTE | 2022-03-04 14:12 | ERPHSYRPT ---
- History of Present Illness Time Seen by Provider: 03/04/22 14:12 Source: patient, EMS, old records Exam Limitations: clinical condition Physician History: This is a 71-year-old white female patient who is typically seen at the [facility] and recently was evaluated at [facility] and was admitted to their facility secondary to a head injury. Patient was discharged to home yesterday. Patient is living with her son and he states she was a little confused last night. However, this morning she seems more confused. Patient is a poor historian. She denies headache. She denies chest pain. She denies shortness of breath. She was diagnosed with COVID-19 infection the end of December. She was diagnosed with a urinary tract infection in the first week in January 2022. Patient was brought into the emergency department by ambulance service from home. Timing/Duration: today Severity: moderate Character of Deficits: other (Confused) Deficits: cannot stand, cannot walk Baseline/Normal Cognition: alert but confused Current Cognition: alert but confused Associated Symptoms: confusion, No chest pain Allergies/Adverse Reactions: Penicillins Allergy (Verified 03/04/22 15:42) Home Medications: Clonazepam [Klonopin] 0.5 mg PO BID 01/15/22 [History] Albuterol Sulfate [Albuterol Sulfate Hfa] 2 puff PO QID PRN 03/04/22 [History] Atorvastatin Calcium [Lipitor] 1 tab PO HS 03/04/22 [History] Fluticasone Propion/Salmeterol [Fluticasone-Salmeterol 250-50] 1 puff PO BID PRN 03/04/22 [History] Levothyroxine Sodium 50 Mcg [Synthroid 50 Mcg] 1 tab PO DAILY 03/04/22 [History] Melatonin 1 tab PO HS 03/04/22 [History] Quetiapine Fumarate 1 tab PO BID 03/04/22 [History] Trazodone HCl 200 mg PO HS 03/04/22 [History] predniSONE [Prednisone] 1 tab PO DAILY 03/04/22 [History] Hx Tetanus, Diphtheria Vaccination/Date Given: No (unknown) Hx Influenza Vaccination/Date Given: No Hx Pneumococcal Vaccination/Date Given: No Travel Risk - International Travel Have you traveled outside of the country in past 3 weeks: No - Coronavirus Screening Are you exhibiting any of the following symptoms?: No Close contact with a COVID-19 positive Pt in past 14-21 Days: No - Vaccine Status Have you recieved a Covid-19 vaccination: No - Review of Systems Constitutional: No Symptoms Eyes: No Symptoms Ears, Nose, & Throat: No Symptoms Respiratory: No Symptoms Cardiac: Orthopnea Abdominal/Gastrointestinal: No Symptoms Genitourinary Symptoms: No Symptoms Musculoskeletal: No Symptoms Skin: No Symptoms Neurological: Other (Confused and unable to follow commands) Psychological: No Symptoms Endocrine: No Symptoms Hematologic/Lymphatic: No Symptoms Immunological/Allergic: No Symptoms All Other Systems: Reviewed and Negative - Past Medical History Pertinent Past Medical History: Yes Cardiac History: High Cholesterol Endocrine Medical History: Hypothyroidism Musculoskeletal History: Osteoporosis GI Medical History: Irritable Bowel Psycho-Social History: Anxiety, Depression - Past Surgical History Past Surgical History: Yes Musculoskeletal: Orthopedic Surgery Female Surgical History: Tubal Ligation, Lumpectomy Other Surgical History: lumpectomy in breast several times, lump in foot, biopsy of cervix that was precancerous - Social History Smoking Status: Current every day smoker Exposure to second hand smoke: Yes Drug Use: none Patient Lives Alone: No - Nursing Vital Signs Nursing Vital Signs: Initial Vital Signs Temperature 98.1 F 03/04/22 14:07 Pulse Rate 74 03/04/22 14:07 Respiratory Rate 28 H 03/04/22 14:07 Blood Pressure 134/105 03/04/22 14:07 O2 Sat by Pulse Oximetry 99 03/04/22 14:07 Pain Scale Pain Intensity 0 - [place] Coma Scale Best Eye Response (Mark): (4) open spontaneously Best Verbal Response (Mark): (4) confused conversation Best Motor Response ([place]): (5) localizes to pain [place] Total: 13 - Physical Exam General Appearance: anxiety Eye Exam: bilateral eye: normal inspection, PERRL, EOMI Ears, Nose, Throat Exam: dry mucous membranes Neck Exam: normal inspection, non-tender, supple, full range of motion Respiratory: normal breath sounds, lungs clear, airway intact, No chest tenderness, No respiratory distress Cardiovascular: regular rate/rhythm, normal heart sounds, normal peripheral pulses Gastrointestinal: soft, normal bowel sounds, No tenderness Pelvic Exam: not done Rectal Exam: not done Back Exam: normal inspection, normal range of motion, CVA tenderness Extremity Exam: normal range of motion (Patient is moving all of her extremities), pelvis stable, other (Skin is very dry on all her extremities.) Mental Status: alert, disoriented to person, disoriented to place, other (Vicente fernandez confused) 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 Exam: tongue midline, No facial droop Skin Exam: dry SpO2 Interpretation: normal O2 Delivery: Room Air - Course Nursing assessment & vital signs reviewed: Yes EKG Interpreted by Me: RATE (73), Sinus Rhythm, NORMAL AXIS, NORMAL INTERVALS, NORMAL QRS, Non-specific ST Changes, Other (No acute ischemic changes on today's EKG) Ordered Tests: Active Orders 24 hr Category Date Time Status [employer] Inspector STAT Care 03/04/22 14:37 Active Catheter-[place] Sandoval STAT Care 03/04/22 14:26 Active EKG-ER Only STAT Care 03/04/22 14:37 Active IV Insertion STAT Care 03/04/22 14:26 Active IV Insertion-2nd Peripheral STAT Care 03/04/22 14:37 Active NPO (ED) STAT Care 03/04/22 14:26 Active HEAD WITHOUT CONTRAST [CT] Stat Exams 03/04/22 14:27 Completed BLOOD CULTURE Stat Lab 03/04/22 14:35 Received CBC W DIFF Stat Lab 03/04/22 14:25 Completed CMP Stat Lab 03/04/22 14:25 Completed CULTURE,URINE Stat Lab 03/04/22 14:38 Ordered T4 (Thyroxine) Stat Lab 03/04/22 Ordered TSH [TSH, 3RD Generation] Stat Lab 03/04/22 16:51 Ordered UA W/RFX CULTURE Stat Lab 03/04/22 14:36 Completed Medication Summary Generic Name Dose Route Start Last Admin Trade Name Freq PRN Reason Stop Dose Admin Sodium Chloride 1,000 mls @ 100 mls/hr 03/04/22 14:30 03/04/22 16:25 Sodium Chloride 0.9% 1000 Ml IV 04/03/22 14:29 Infused .Q10H PEYTON Infusion Discontinued Medications Generic Name Dose Route Start Last Admin Trade Name Freq PRN Reason Stop Dose Admin Lorazepam 1 mg 03/04/22 15:45 03/04/22 15:52 Lorazepam 2 Mg/1 Ml 2 Mg Vial IV 03/04/22 15:46 1 mg STAT ONE Administration Lorazepam Confirm 03/04/22 15:51 Lorazepam 2 Mg/1 Ml 2 Mg Vial Administered 03/04/22 15:52 Dose 2 mg .ROUTE .K-MED ONE Lab/Rad Data: Laboratory Result Diagrams 03/04/22 14:25 03/04/22 14:25 Laboratory Results 03/04/22 03/04/22 03/04/22 Range/Units 14:36 14:35 14:35 WBC (4.0-10.5) x10^3/uL RBC (4.1-5.4) x10^6/uL Hgb (12.0-16.0) g/dL Hct (35-47) % MCV (78-100) fL MCH (26-32) pg MCHC (32-36) g/dL RDW (11.5-14.0) % Plt Count (150-450) x10^3/uL MPV (7.5-11.0) fL Gran % (36.0-66.0) % Immature Gran % (Auto) (0.00-0.4) % Nucleat RBC Rel Count (0.00-0.1) % Eos # (Auto) (0-0.5) x10^3/uL Immature Gran # (Auto) (0.00-0.03) x10^3u/L Absolute Lymphs (auto) (1.0-4.6) x10^3/uL Absolute Monos (auto) (0.0-1.3) x10^3/uL Absolute Nucleated RBC (0.00-0.01) x10^3u/L Lymphocytes % (24.0-44.0) % Monocytes % (0.0-12.0) % Eosinophils % (0.00-5.0) % Basophils % (0.0-0.4) % Absolute Granulocytes (1.4-6.9) x10^3/uL Basophils # (0-0.4) x10^3/uL Sodium (137-145) mmol/L Potassium (3.5-5.1) mmol/L Chloride (98-107) mmol/L Carbon Dioxide (22-30) mmol/L Anion Gap (5-15) MEQ/L BUN (7-17) mg/dL Creatinine (0.52-1.04) mg/dL Estimated GFR ML/MIN Glucose (74-106) mg/dL Calcium (8.4-10.2) mg/dL Total Bilirubin (0.2-1.3) mg/dL AST (14-36) U/L ALT (0-35) U/L Alkaline Phosphatase (38-126) U/L Ammonia < 9 L (9-30) umol/L Serum Total Protein (6.3-8.2) g/dL Albumin (3.5-5.0) g/dL Urinalys Dipstick Clnc MAIN LAB Urine Color YELLOW (YELLOW) Urine Appearance CLEAR (CLEAR) Urine pH 7.5 (5-6) Ur Specific [place] 1.020 (1.005-1.025) POC Urine Protein Conf NEGATIVE (Negative) Urine Ketones NEGATIVE (NEGATIVE) Urine Nitrite NEGATIVE (NEGATIVE) Urine Bilirubin NEGATIVE (NEGATIVE) Urine Urobilinogen 0.2 (0-1) mg/dL Urine Leukocytes NEGATIVE (NEGATIVE) Urine WBC (Auto) 0-2 (0-5) /HPF Urine RBC (Auto) NONE (0-2) /HPF U Epithel Cells (Auto) RARE (FEW) /HPF Urine Bacteria (Auto) RARE (NEGATIVE) /HPF Urine RBC TRACE-INTACT A (0-5) Irving/ul Ur Culture Indicated? ORDERED SEPARATELY Urine Glucose NEGATIVE (NEGATIVE) mg/dL Influenza Type A Ag NEGATIVE (NEGATIVE) Influenza Type B Ag NEGATIVE (NEGATIVE) RSV (PCR) NEGATIVE (Negative) SARS-CoV-2 (PCR) NEGATIVE (NEGATIVE) 03/04/22 03/04/22 Range/Units 14:25 14:25 WBC 8.5 (4.0-10.5) x10^3/uL RBC 4.91 (4.1-5.4) x10^6/uL Hgb 14.7 (12.0-16.0) g/dL Hct 46.5 (35-47) % MCV 94.7 (78-100) fL MCH 29.9 (26-32) pg MCHC 31.6 L (32-36) g/dL RDW 14.6 H (11.5-14.0) % Plt Count 244 (150-450) x10^3/uL MPV 10.8 (7.5-11.0) fL Gran % 62.1 (36.0-66.0) % Immature Gran % (Auto) 0.2 (0.00-0.4) % Nucleat RBC Rel Count 0.0 (0.00-0.1) % Eos # (Auto) 0.08 (0-0.5) x10^3/uL Immature Gran # (Auto) 0.02 (0.00-0.03) x10^3u/L Absolute Lymphs (auto) 2.41 (1.0-4.6) x10^3/uL Absolute Monos (auto) 0.63 (0.0-1.3) x10^3/uL Absolute Nucleated RBC 0.00 (0.00-0.01) x10^3u/L Lymphocytes % 28.5 (24.0-44.0) % Monocytes % 7.4 (0.0-12.0) % Eosinophils % 0.9 (0.00-5.0) % Basophils % 0.9 (0.0-0.4) % Absolute Granulocytes 5.25 (1.4-6.9) x10^3/uL Basophils # 0.08 (0-0.4) x10^3/uL Sodium 134 L (137-145) mmol/L Potassium 4.7 (3.5-5.1) mmol/L Chloride 102 (98-107) mmol/L Carbon Dioxide 28 (22-30) mmol/L Anion Gap 8.7 (5-15) MEQ/L BUN 13 (7-17) mg/dL Creatinine 0.68 (0.52-1.04) mg/dL Estimated GFR > 60.0 ML/MIN Glucose 112 H (74-106) mg/dL Calcium 9.2 (8.4-10.2) mg/dL Total Bilirubin 1.00 (0.2-1.3) mg/dL AST 30 (14-36) U/L ALT 13 (0-35) U/L Alkaline Phosphatase 120 (38-126) U/L Ammonia (9-30) umol/L Serum Total Protein 7.1 (6.3-8.2) g/dL Albumin 3.9 (3.5-5.0) g/dL Urinalys Dipstick Clnc Urine Color (YELLOW) Urine Appearance (CLEAR) Urine pH (5-6) Ur Specific [place] (1.005-1.025) POC Urine Protein Conf (Negative) Urine Ketones (NEGATIVE) Urine Nitrite (NEGATIVE) Urine Bilirubin (NEGATIVE) Urine Urobilinogen (0-1) mg/dL Urine Leukocytes (NEGATIVE) Urine WBC (Auto) (0-5) /HPF Urine RBC (Auto) (0-2) /HPF U Epithel Cells (Auto) (FEW) /HPF Urine Bacteria (Auto) (NEGATIVE) /HPF Urine RBC (0-5) Irving/ul Ur Culture Indicated? Urine Glucose (NEGATIVE) mg/dL Influenza Type A Ag (NEGATIVE) Influenza Type B Ag (NEGATIVE) RSV (PCR) (Negative) SARS-CoV-2 (PCR) (NEGATIVE) - Progress Progress: improved Progress Note: 03/04/22 15:36 CT scan of the head without contrast chronic atrophy with degenerative micro ischemic changes. There is no new/acute intracranial abnormalities 03/04/22 16:24 Medical decision making: This patient seems anxious and irritated. She does not have a urinary tract infection. She has been out of her usual surroundings for couple days. My belief is that she has a degree of dementia and she is sundowning. She did hit her head a few days ago and CAT scan of her head was performed at [facility] per patient's son. This CAT scan of her head was negative per his report. Today's repeat CAT scan of the head without contrast shows no acute intracranial bleed. There are chronic changes and brain atrophy. I feel the patient would best served by placing her in observation, providing her with IV hydration throughout the remainder of today and into tomorrow and repeating her labs in the morning. We can provide her with intravenous medication to help control her agitation and irritation throughout the night and in the morning. She is a [facility] patient and we will obtain authorization prior to her placing her in observation and then if cleared, we will contact the physician who is admitting unassigned patients. 03/04/22 16:26 03/04/22 16:52 Medical decision making: I spoke with Dr. Palmer, our hospitalist covering unassigned patients, regarding this patient. If the [facility] allows us to place the patient in observation here at our facility we will do so. We will provide her with the above plan. Discussed with : Gamaliel Counseled pt/family regarding: lab results, diagnosis, rad results - Departure Departure Disposition: Observation Clinical Impression: Anxiety, Sundowning Condition: Fair Critical Care Time: No Referrals: HOSPITAL,'S [Primary Care Provider] - Follow up/PCP as directed
[2022-03-04] MEDS ORDERED: Sodium Chloride 0.9% 1000 ML 1,000 ML IV SCH (14:30)
[2022-03-04 14:43] LABS: Absolute Neutrophil Ct (ANC) 5.25 x10^3/uL (1.4-6.9); Basophil (Absolute #) 0.08 x10^3/uL (0-0.4); Eosinophil % 0.9 % (0.00-5.0); Eosinophil (Absolute #) 0.08 x10^3/uL (0-0.5); Hematocrit 46.5 % (35-47); Hemoglobin 14.7 g/dL (12.0-16.0); Lymphocyte (Absolute #) 2.41 x10^3/uL (1.0-4.6); Lymphocytes % 28.5 % (24.0-44.0); Mean Cell Volume 94.7 fL (78-100); Mean Corpuscular Hemoglobin 29.9 pg (26-32); Mean Corpuscular Hgb Concent. 31.6 g/dL (32-36); Mean Platelet Volume 10.8 fL (7.5-11.0); Monocyte (Absolute #) 0.63 x10^3/uL (0.0-1.3); Monocytes % 7.4 % (0.0-12.0); Neutrophil % 62.1 % (36.0-66.0); Platelet Count 244 x10^3/uL (150-450); Red Blood Count 4.91 x10^6/uL (4.1-5.4); Red Cell Distribution Width 14.6 % (11.5-14.0); White Blood Count 8.5 x10^3/uL (4.0-10.5)
[2022-03-04] MEDS ORDERED: Sodium Chloride 0.9% 1000 ML 1,000 ML ONE (14:46)
[2022-03-04 14:50] LABS: Bacteria RARE /HPF (NEGATIVE); Epithelial Cells RARE /HPF (FEW); WBC 0-2 /HPF (0-5)
[2022-03-04 14:53] LABS: Appearance CLEAR (CLEAR); Bilirubin NEGATIVE (NEGATIVE); Dipstick done @ ? MAIN LAB; Glucose NEGATIVE (NEGATIVE); Ketones NEGATIVE (NEGATIVE); Nitrite NEGATIVE (NEGATIVE); Ph 7.5 (5-6); Protein,Urine Dip NEGATIVE (Negative); RBC TRACE-INTACT Ery/ul (0-5); Urobilinogen 0.2 mg/dL (0-1)
[2022-03-04 14:54] LABS: Urine Cultured Indicated? ORDERED SEPARATELY
[2022-03-04 14:56] LABS: ALBUMIN 3.9 g/dL (3.5-5.0); ALKALINE PHOSPHATASE 120 U/L (38-126); ANION GAP 8.7 MEQ/L (5-15); BLOOD UREA NITROGEN 13 mg/dL (7-17); CHLORIDE 102 mmol/L (98-107); Calcium 9.2 mg/dL (8.4-10.2); Carbon Dioxide 28 mmol/L (22-30); Creatinine 1 0.68 mg/dL (0.52-1.04); EST GLOMERULAR FILTRATION RATE > 60.0 ML/MIN; Glucose 112 mg/dL (74-106); Potassium 4.7 mmol/L (3.5-5.1); SGOT/AST 30 U/L (14-36); SGPT/ALT 13 U/L (0-35); SODIUM 134 mmol/L (137-145); Total Protein 7.1 g/dL (6.3-8.2)
--- NOTE | 2022-03-04 14:57 | XRAY ---
Indication: Acute mental status change. Multiple contiguous axial images obtained through the head without contrast. Comparison: January 22, 2022 Stable age-appropriate global atrophy and periventricular degenerative micro-ischemia bilaterally. No acute intracranial hemorrhage, abnormal extra-axial fluid collection, or mass effect. Fourth ventricle is midline without hydrocephalus. Bony calvarium intact. Visualized paranasal sinuses and mastoid air cells are clear. Impression: No change compared to CT one month ago again demonstrating atrophy and degenerative micro-ischemia within normal limits for patient's age. No new/acute intracranial abnormalities.
[2022-03-04 15:23] LABS: INFLUENZA A NEGATIVE (NEGATIVE); INFLUENZA B NEGATIVE (NEGATIVE); RESPIRATORY SYNCTIAL VIRUS NEGATIVE (Negative); SARS-CoV-2 Xpert Express NEGATIVE (NEGATIVE)
[2022-03-04] MEDS ORDERED: Ativan 2 MG/1 ML VIAL IV ONE ×2 (15:45→17:09)
[2022-03-04] MEDS ORDERED: Ativan 2 MG/1 ML VIAL ONE ×2 (15:51→17:13)
[2022-03-04] MEDS ORDERED: Zofran 4 MG/2 ML VIAL IV PRN (18:45)
[2022-03-04] MEDS ORDERED: TYLENOL 325 MG PO PRN (18:45)
[2022-03-04] MEDS ORDERED: VENTOLIN COMMON CANISTER IH PRN (19:57)
[2022-03-04] MEDS: Advair Hfa 115/21 Common canister IH SCH (20:41)
[2022-03-04] MEDS: Ativan 2 MG/1 ML VIAL IV PRN (21:34)
[2022-03-04] MEDS: Sodium Chloride 0.9% 1000 ML 1,000 ML IV SCH (21:44)
[2022-03-04] MEDS ORDERED: ZOCOR 20MG ONE (22:24)
[2022-03-04] MEDS: ZOCOR 20MG PO SCH (22:25)
[2022-03-04] MEDS ORDERED: MELATONIN PO ONE (22:30)
[2022-03-04] MEDS ORDERED: Seroquel 100 MG PO ONE (22:30)
[2022-03-05 06:22] LABS: Absolute Neutrophil Ct (ANC) 3.81 x10^3/uL (1.4-6.9); Basophil (Absolute #) 0.07 x10^3/uL (0-0.4); Eosinophil % 2.1 % (0.00-5.0); Eosinophil (Absolute #) 0.14 x10^3/uL (0-0.5); Hematocrit 41.4 % (35-47); Hemoglobin 12.8 g/dL (12.0-16.0); Lymphocyte (Absolute #) 2.01 x10^3/uL (1.0-4.6); Lymphocytes % 30.6 % (24.0-44.0); Mean Cell Volume 93.7 fL (78-100); Mean Corpuscular Hgb Concent. 30.9 g/dL (32-36); Mean Platelet Volume 10.6 fL (7.5-11.0); Monocyte (Absolute #) 0.53 x10^3/uL (0.0-1.3); Monocytes % 8.1 % (0.0-12.0); Neutrophil % 57.9 % (36.0-66.0); Platelet Count 199 x10^3/uL (150-450); Red Blood Count 4.42 x10^6/uL (4.1-5.4); Red Cell Distribution Width 14.5 % (11.5-14.0); White Blood Count 6.6 x10^3/uL (4.0-10.5)
[2022-03-05 06:59] LABS: ALBUMIN 3.4 g/dL (3.5-5.0); ALKALINE PHOSPHATASE 95 U/L (38-126); ANION GAP 6.7 MEQ/L (5-15); BLOOD UREA NITROGEN 11 mg/dL (7-17); CHLORIDE 106 mmol/L (98-107); Calcium 8.3 mg/dL (8.4-10.2); Carbon Dioxide 24 mmol/L (22-30); Creatinine 1 0.51 mg/dL (0.52-1.04); EST GLOMERULAR FILTRATION RATE > 60.0 ML/MIN; Glucose 108 mg/dL (74-106); MAGNESIUM 1.9 mg/dL (1.6-2.3); Potassium 3.6 mmol/L (3.5-5.1); SGOT/AST 28 U/L (14-36); SGPT/ALT 10 U/L (0-35); SODIUM 133 mmol/L (137-145); Total Protein 6.5 g/dL (6.3-8.2)
[2022-03-05] MEDS ORDERED: Ativan 2 MG/1 ML VIAL ONE (07:01)
[2022-03-05] MEDS: Ativan 2 MG/1 ML VIAL IV PRN ×2 (07:03→11:43)
[2022-03-05] MEDS: Sodium Chloride 0.9% 1000 ML 1,000 ML IV SCH ×2 (07:53→17:58)
[2022-03-05] MEDS: Advair Hfa 115/21 Common canister IH SCH ×2 (08:00→19:58)
[2022-03-05] MEDS ORDERED: SYNTHROID 50 MCG PO SCH (10:00)
[2022-03-05] MEDS ORDERED: Seroquel 100 MG PO SCH (10:00)
[2022-03-05] MEDS ORDERED: QUETIAPINE FUMARATE 400 MG PO SCH (10:00)
[2022-03-05] MEDS ORDERED: Haldol 5 MG IM ONE (12:49)
[2022-03-05] MEDS ORDERED: Geodon 20 MG INJ IM SCH (13:30)
[2022-03-05] MEDS ORDERED: Geodon 20 MG INJ IM ONE (14:00)
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
[2022-03-05] MEDS: Geodon 20 MG INJ IM SCH ×2 (17:59→21:23)
[2022-03-05] MEDS: Sterile H2O 10 ml IJ SCH ×2 (18:07→21:24)
[2022-03-05 19:51] VITALS: BP 143/68; PULSE 75; O2SAT 100
[2022-03-05] MEDS: ZOCOR 20MG PO SCH (21:47)
[2022-03-05] MEDS ORDERED: MELATONIN PO SCH (22:00)
== END 2022-03-05 22:30 ==
LOC: ED 14:06 → MED SURG 18:23
PROVIDERS: ADMIT Family Medicine; ATTEND Family Medicine
DX: R41.82 Altered mental status, unspecified (principal); W07.XXXA Fall from chair, initial encounter; F33.9 Major depressive disorder, recurrent, unspecified; E78.5 Hyperlipidemia, unspecified; L89.891 Pressure ulcer of other site, stage 1; Z72.0 Tobacco use; Z79.899 Other long term (current) drug therapy; Z20.828 Contact with and (suspected) exposure to other viral communicable diseases
CPT/HCPCS: 0241U; 36000; 36415; 51702; 70450; 80053; 81015; 82140; 82607; 83735; 84436; 84443; 85025; 87040; 87086; 93005; 93041; 94640; 94760; 96374; 96376; 99285; G0378; J1630; J2060; J3486; A9270-GY

== ENCOUNTER 2022-09-22 14:24 | Emergency (ER) | payer OTHER ==
[2022-09-22] MEDS ORDERED: TORAdol 30 mg Injection IM ONE (16:28)
--- NOTE | 2022-09-22 16:36 | ERPHSYRPT ---
- History of Present Illness Time Seen by Provider: 09/22/22 16:31 Source: patient Exam Limitations: no limitations Patient Subjective Stated Complaint: C/O back pain for the past few days; states it keeps her up at night. Triage Nursing Assessment: Patient ambulated back to ER with a walker and a slow, steady gait. She is alert and oriented. No SOB. She is pale. No skin alterations noted to back at this time but an incision is noted to right upper side; patient states she had a lymph node removed on 08/24/[address] Jmi Mcgee that was positive for lymphoma. She is going to follow-up with oncology next week. Physician History: Patient is a 71-year-old female presents to our ED for evaluation of thoracic and lumbar spine pain. Pain started approximately 3 days ago. Patient states she has been unable to sleep due to pain. No trauma no fever. Patient advised that she was recently diagnosed with lymphoma. Patient had a lymph node biopsy performed on August 24. Results became available on September 02. Patient was diagnosed with lymphoma at that time. Patient had a CT abdomen pelvis performed at the [facility]. Results are pending. Family and patient are here for a CT of her thoracic and lumbar spine. They fear that lymphoma is affecting her spine. No trauma. No fever. No nausea or vomiting. No chest pain. Symptoms are moderate in intensity. Pain worse with movement pain improved with rest. Patient voices no other complaints or concerns at this time. Portions of this note were created with voice recognition technology. There may be grammatical, spelling, punctuation or sound alike errors Timing/Duration: day(s) Severity: moderate (3 days) Modifying Factors: Improves With: movement, other (Movement) Associated Symptoms: denies symptoms Allergies/Adverse Reactions: Influenza Virus Vaccines Allergy (Verified 09/22/22 14:49) Penicillins Allergy (Verified 09/22/22 14:46) Home Medications: Clonazepam [Klonopin] 1.5 mg PO BID 01/15/22 [History] Albuterol Sulfate [Albuterol Sulfate Hfa] 2 puff PO QID PRN 03/04/22 [History] Atorvastatin Calcium [Lipitor] 40 mg PO HS 03/04/22 [History] Fluticasone Propion/Salmeterol [Fluticasone-Salmeterol 250-50] 1 puff PO BID PRN 03/04/22 [History] Levothyroxine Sodium 50 Mcg [Synthroid 50 Mcg] 50 mcg PO DAILY 03/04/22 [History] Melatonin 1 tab PO HS 03/04/22 [History] Quetiapine Fumarate 300 tab PO BID 03/04/22 [History] Hx Tetanus, Diphtheria Vaccination/Date Given: No Hx Influenza Vaccination/Date Given: No Hx Pneumococcal Vaccination/Date Given: No Immunizations Up to Date: No Travel Risk - International Travel Have you traveled outside of the country in past 3 weeks: No - Coronavirus Screening Are you exhibiting any of the following symptoms?: No Close contact with a COVID-19 positive Pt in past 14-21 Days: No - Vaccine Status Have you recieved a Covid-19 vaccination: No - Review of Systems Constitutional: No Symptoms, No Fever, No Chills Eyes: No Symptoms Ears, Nose, & Throat: No Symptoms Respiratory: No Symptoms, No Cough, No Dyspnea Cardiac: No Symptoms, No Chest Pain, No Edema, No Syncope Abdominal/Gastrointestinal: No Symptoms, No Abdominal Pain, No Nausea, No Vomiting, No Diarrhea Genitourinary Symptoms: No Symptoms, No Dysuria Musculoskeletal: No Symptoms, No Back Pain, No Neck Pain Skin: No Symptoms, No Rash Neurological: No Symptoms, No Dizziness, No Focal Weakness, No Sensory Changes Psychological: No Symptoms Endocrine: No Symptoms Hematologic/Lymphatic: No Symptoms Immunological/Allergic: No Symptoms All Other Systems: Reviewed and Negative - Past Medical History Pertinent Past Medical History: Yes Cardiac History: High Cholesterol Respiratory History: COPD Endocrine Medical History: Hypothyroidism Musculoskeletal History: Osteoporosis GI Medical History: Irritable Bowel Psycho-Social History: Anxiety, Bipolar, Depression Other Medical History: Insomnia - taken from medical records, lymphoma - Past Surgical History Past Surgical History: Yes Musculoskeletal: Orthopedic Surgery Female Surgical History: Tubal Ligation, Lumpectomy Other Surgical History: lumpectomy in breast several times, lump in foot, biopsy of cervix that was precancerous - Social History Smoking Status: Current every day smoker How long have you smoked: 60 years Exposure to second hand smoke: Yes Drug Use: none Patient Lives Alone: No - Nursing Vital Signs Nursing Vital Signs: Initial Vital Signs Temperature 97.6 F 09/22/22 14:45 Pulse Rate 66 09/22/22 14:45 Respiratory Rate 18 09/22/22 14:45 Blood Pressure 147/74 09/22/22 14:45 O2 Sat by Pulse Oximetry 99 09/22/22 14:45 Pain Scale Pain Intensity [Back pain] 8 Pain Intensity 6 - Physical Exam General Appearance: no apparent distress, alert Eye Exam: PERRL/EOMI, eyes nml inspection Ears, Nose, Throat Exam: normal ENT inspection, TMs normal, pharynx normal, moist mucous membranes Neck Exam: normal inspection, non-tender, supple, full range of motion Respiratory Exam: normal breath sounds, lungs clear, airway intact, No respiratory distress Cardiovascular Exam: regular rate/rhythm, normal heart sounds, normal peripheral pulses Gastrointestinal/Abdomen Exam: soft, normal bowel sounds, No tenderness, No mass Back Exam: normal inspection, normal range of motion, other (Tenderness to palpation at the lumbar and thoracic spine. Pain reproduced with direct palpation over the full length of the thoracic and lumbar spine. Overlying soft tissue intact. No signs of trauma), No CVA tenderness, No vertebral tenderness Extremity Exam: normal inspection, normal range of motion, pelvis stable Neurologic Exam: alert, oriented x 3, cooperative, normal mood/affect, sensation nml, No motor deficits Skin Exam: normal color, warm, dry, No rash Lymphatic Exam: No adenopathy SpO2 Interpretation: normal SpO2: 92 O2 Delivery: Room Air - Course Nursing assessment & vital signs reviewed: Yes - CT Exams Thoracic Spine CT Interpretation: Tele-radiologist Report (Osteopenia, degenerative joint disease, atherosclerotic disease, old granulomatous disease) Lumbar Spine CT Interpretation: Tele-radiologist Report (CT lumbar spine shows degenerative joint disease, disc bulge.) Ordered Tests: Active Orders 24 hr Category Date Time Status LUMBAR SPINE W/O [CT] Stat Exams 09/22/22 16:29 Completed THORACIC SPINE W/O CONTRAST [CT] Stat Exams 09/22/22 16:29 Completed Medication Summary Discontinued Medications Generic Name Dose Route Start Last Admin Trade Name Freq PRN Reason Stop Dose Admin Ketorolac Tromethamine 30 mg 09/22/22 16:28 09/22/22 16:46 Ketorolac Tromethamine 30 Mg/Ml Inj IM 09/22/22 16:29 30 mg STAT ONE Administration Ketorolac Tromethamine Confirm 09/22/22 16:45 Ketorolac Tromethamine 30 Mg/Ml Inj Administered 09/22/22 16:46 Dose 30 mg .ROUTE .c8apps-MED ONE - Progress Progress: improved Progress Note: Patient is a 71-year-old female presents to our ED for evaluation of back pain. Patient concerned that she was recently diagnosed with lymphoma. Physical exam reveals some tenderness along the full length of the thoracic and lumbar spine. No concerning lesions observed on the CT spine images. Osteoporotic findings observed. There is some lumbar spine disc bulge. Patient received Toradol for pain control. Patient reassessed. She is resting comfortably. No acute distress. Will discharge home. Patient agrees to follow-up with her primary care doctor within 48 hours for reevaluation. Portions of this note were created with voice recognition technology. There may be grammatical, spelling, punctuation or sound alike errors Complexity of problem addressed is low acute uncomplicated Complex of data reviewed and analyzed is moderate. CT scan of thoracic and lumbar spine reviewed. Report findings were correlated clinically with physical exam findings. Will discharge home. Risk of complication and or risk morbidity/mortality patient management is moderate. Patient will receive a prescription for Toradol for home. Plan of care established via shared decision making. Patient agrees to follow- up with her primary care doctor within 48 hours for reevaluation. No social determinants of health present to impede follow-up. Vital stable. Portions of this note were created with voice recognition technology. There may be grammatical, spelling, punctuation or sound alike errors 09/22/22 19:00 Counseled pt/family regarding: diagnosis, need for follow-up, rad results - Departure Departure Disposition: Home Clinical Impression: Arthritis of spine, Back pain Condition: Stable Critical Care Time: No Referrals: HOSPITAL,'S [Primary Care Provider] - Follow up/PCP as directed Additional Instructions: Discharge/Care Plan MAURO REDDING was seen on 09/22/22 in the Emergency Room. The patient was counseled regarding Diagnosis,Lab results, Imaging studies, need for follow up and when to return to the Emergency Room. Prescriptions given: Discharge Note I have spoken with the patient and/or caregivers. I have explained the patient's condition, diagnosis and treatment plan based on the information available to me at this time. I have answered the patient's and/or caregiver's questions and addressed any concerns. The patient and/or caregivers have as good understanding of the patient's diagnosis, condition and treatment plan as can be expected at this point. The vital signs have been stable. The patient's condition is stable and appropriate for discharge from the emergency department. The patient will pursue further outpatient evaluation with the primary care physician or other designated or consulting physician as outlined in the discharge instructions. The patient and/or caregivers are agreeable to this plan of care and follow-up instructions have been explained in detail. The patient and/or caregivers have received these instruction. The patient/and or caregivers are aware that any significant change in condition or worsening of symptoms should prompt an immediate return to this or the closest emergency department or call 911.
[2022-09-22] MEDS ORDERED: TORAdol 30 mg Injection ONE (16:45)
[2022-09-22 17:04] VITALS: BP 135/84
[2022-09-22 17:13] VITALS: PULSE 56
--- NOTE | 2022-09-22 17:16 | XRAY ---
Indication: Pain. Lymphoma. Multiple contiguous axial images obtained through the thoracic spine. Sagittal and coronal reformatted images obtained. Comparison: None Age-related osteopenia. Axial images negative for acute fracture, suspicious bony lesions, or spinal canal stenosis. Minimal multilevel anterior endplate spurring and minimal T7-T8 degenerative vacuum disc phenomena. Sagittal and coronal reformatted images demonstrates normal thoracic alignment/kyphosis. Vertebral body height/disc spaces maintained. No acute compression fracture or subluxation. Visualized noncontrasted soft tissues demonstrates mild arteriosclerotic thoracal abdominal aorta and multiple mediastinal/hilar/pulmonary calcified granulomas. CT lumbar spine reported separately. Impression: Osteopenia and minimal degenerative changes. Incidental arteriosclerotic disease and old granulomatous disease. Remaining CT thoracic spine is negative.
--- NOTE | 2022-09-22 17:20 | XRAY ---
Indication: Pain. Lymphoma. Multiple contiguous axial images obtained through the lumbar spine. Sagittal and coronal reformatted images obtained. Comparison: None CT thoracic spine reported separately. Age-related osteopenia. Axial images negative for acute fracture, suspicious bony lesions, or spinal canal stenosis. Minimal L5-S1 broad-based disc bulge with minimal vacuum disc phenomena. Mild bilateral L5 and S1 degenerative facet arthropathy. Both SI joints also demonstrates degenerative vacuum phenomena. Sagittal and coronal reformatted images demonstrates normal lumbar alignment. Mild L5-S1 disc space narrowing. Remaining vertebral body height/disc spaces maintained. No acute compression fracture or subluxation. Visualized noncontrasted soft tissues demonstrates mild arteriosclerotic aorta and splenic calcified granulomas. Impression: Osteopenia and L5-S1 degenerative changes. Incidental arteriosclerotic disease and old granulomatous disease. Remaining CT lumbar spine is negative.
[2022-09-22 19:04] VITALS: O2SAT 92
== END 2022-09-22 19:17 | disposition home or self-care (01) ==
LOC: ED 14:24
DX: M47.815 Spondylosis without myelopathy or radiculopathy, thoracolumbar region (principal); M54.50 Low back pain, unspecified; M54.6 Pain in thoracic spine; I10 Essential (primary) hypertension; Z79.899 Other long term (current) drug therapy; Z28.310 Unvaccinated for COVID-19; Z72.0 Tobacco use
CPT/HCPCS: 72128; 72131; 96372; 99284; J1885

== ENCOUNTER 2023-07-26 23:18 | Emergency (ER) | payer OTHER ==
[2023-07-26] MEDS ORDERED: TYLENOL 325 MG PO ONE (23:36)
[2023-07-26 23:41] VITALS: RESP 18; TEMP 97.8
--- NOTE | 2023-07-26 23:48 | ERPHSYRPT ---
- History of Present Illness Time Seen by Provider: 07/26/23 23:25 Source: patient Exam Limitations: no limitations Patient Subjective Stated Complaint: pt states she was walking trying to avoid stepping of kittens and tripped over her feet Triage Nursing Assessment: pt came into the er via wheelchair; pt transfer self to cot; pt is axo x3; c/o fall; pt states 8/10 pain to RUE; strong rt radial pulse; good cap refill to rt hand; limited ROM to RUE; skin PDW; no respiratory distress present; hypertensive Physician History: Patient is a 72-year-old female presents to our ED for evaluation of right upper extremity. Patient states she was at home. Patient was avoiding stepping on kittens and fell. Patient's fall was ground-level. Patient fell onto her outstretched arm then onto her elbow and shoulder area. No BHT or LOC no neck pain. Cervical spine cleared clinically the fall was mechanical and not associated with any neuro cardiovascular symptomology. No chest pain or shortness of breath. No nausea vomiting or diaphoresis. No numbness tingling or weakness. Pain described as an ache that is localized. No radiation. Pain worse with movement and palpation. Pain improves with rest. Patient voices no other complaints or concerns at this time. Portions of this note were created with voice recognition technology. There may be grammatical, spelling, punctuation or sound alike errors Occurred: just prior to arrival Reason for Fall: tripped Injuries/Pain Location: upper extremity (Right upper extremity) Loss of Consciousness: no loss of consciousness Quality: aching Severity of Pain-Max: moderate Severity of Pain-Current: moderate Modifying Factors: Improves With: movement Associated Symptoms (Fall): denies symptoms Allergies/Adverse Reactions: Influenza Virus Vaccines Allergy (Verified 07/26/23 23:26) Penicillins Allergy (Verified 07/26/23 23:26) Home Medications: Clonazepam [Klonopin] 0.5 mg PO BID 01/15/22 [History] Albuterol Sulfate [Albuterol Sulfate Hfa] 2 puff PO QID PRN 03/04/22 [History] Atorvastatin Calcium [Lipitor] 40 mg PO HS 03/04/22 [History] Fluticasone Propion/Salmeterol [Fluticasone-Salmeterol 250-50] 1 puff PO BID PRN 03/04/22 [History] Levothyroxine Sodium 50 Mcg [Synthroid 50 Mcg] 50 mcg PO DAILY 03/04/22 [History] Melatonin 1 tab PO HS 03/04/22 [History] Quetiapine Fumarate 200 mg PO BID 03/04/22 [History] Cyclobenzaprine HCl 10 mg [Cyclobenzaprine 10 MG] 10 mg PO BID PRN 07/26/23 [History] Trazodone HCl 200 mg PO HS 07/26/23 [History] Hx Tetanus, Diphtheria Vaccination/Date Given: No Hx Influenza Vaccination/Date Given: No Hx Pneumococcal Vaccination/Date Given: No Immunizations Up to Date: No Travel Risk - International Travel Have you traveled outside of the country in past 3 weeks: No - Emerging Infectious Disease Are you exhibiting symptoms associated with any current EIDs: No - Review of Systems Constitutional: No Symptoms, No Fever, No Chills Eyes: No Symptoms Ears, Nose, & Throat: No Symptoms Respiratory: No Symptoms, No Cough, No Dyspnea Cardiac: No Symptoms, No Chest Pain, No Edema, No Syncope Abdominal/Gastrointestinal: No Symptoms, No Abdominal Pain, No Nausea, No Vomiting, No Diarrhea Genitourinary Symptoms: No Symptoms, No Dysuria Musculoskeletal: No Symptoms, No Back Pain, No Neck Pain Skin: No Symptoms, No Rash Neurological: No Symptoms, No Dizziness, No Focal Weakness, No Sensory Changes Psychological: No Symptoms Endocrine: No Symptoms Hematologic/Lymphatic: No Symptoms Immunological/Allergic: No Symptoms All Other Systems: Reviewed and Negative - Past Medical History Pertinent Past Medical History: Yes Cardiac History: High Cholesterol Respiratory History: COPD Endocrine Medical History: Hypothyroidism Musculoskeletal History: Osteoporosis GI Medical History: Irritable Bowel Psycho-Social History: Anxiety, Bipolar, Depression Other Medical History: Insomnia - taken from medical records, lymphoma - Past Surgical History Past Surgical History: Yes Musculoskeletal: Orthopedic Surgery Female Surgical History: Tubal Ligation, Lumpectomy Other Surgical History: lumpectomy in breast several times, lump in foot, biopsy of cervix that was precancerous - Social History Smoking Status: Current every day smoker How long have you smoked: 60 years Exposure to second hand smoke: Yes Drug Use: none Patient Lives Alone: No - Nursing Vital Signs Nursing Vital Signs: Initial Vital Signs Temperature 97.8 F 07/26/23 23:27 Pulse Rate 73 07/26/23 23:27 Respiratory Rate 18 07/26/23 23:27 Blood Pressure 159/86 07/26/23 23:27 O2 Sat by Pulse Oximetry 97 07/26/23 23:27 Pain Scale Pain Intensity 8 - Mark Coma Score Best Eye Response (Mark): (4) open spontaneously Best Verbal Response (Mark): (5) oriented Best Motor Response ([place]): (6) obeys commands [place] Total: 15 - Physical Exam General Appearance: no apparent distress, alert Head Injury: no evidence of injury Eye Exam: PERRL/EOMI ENT Exam: airway nml Neck Exam: supple, trachea midline, full range of motion, normal alignment, normal inspection, No tenderness Respiratory/Chest Exam: normal breath sounds, No chest tenderness, No respiratory distress Cardiovascular Exam: normal heart sounds, regular rate/rhythm Gastrointestinal Exam: soft, No tenderness, No distention, No guarding, No ecchymosis Back Exam: normal inspection, No vertebral tenderness Extremity Exam: normal inspection, normal range of motion, pelvis stable, other (Right upper extremity range of motion limited due to pain. No obvious deformity. No swelling. Tenderness from the shoulder down to the wrist. No open or draining lesions. Radial pulse palpable compartments are soft cap refill less than 2 seconds), No deformities Neurologic Exam: alert, oriented x 3, cooperative, sensation nml, No motor deficits Skin Exam: normal color, warm, dry SpO2 Interpretation: normal SpO2: 97 O2 Delivery: Room Air - Course Nursing assessment & vital signs reviewed: Yes - Radiology Exams Elbow X-ray Interpretation: Teleradiologist Report (Fractured elbow, nondisplaced) Shoulder X-ray Interpretation: Interpreted by me (No fracture or dislocation. No acute findings) Humerus X-ray Interpretation: Interpreted by me (Fracture distal humerus,) Forearm X-ray Interpretation: Interpreted by me (No fractures observed on forearm x-ray) Ordered Tests: Active Orders 24 hr Category Date Time Status ELBOW (MINIMUM 3 VIEWS) Stat Exams 07/26/23 23:37 Completed FOREARM Stat Exams 07/26/23 23:37 Taken HUMERUS Stat Exams 07/26/23 23:37 Taken SHOULDER Stat Exams 07/26/23 23:36 Taken Medication Summary Discontinued Medications Generic Name Dose Route Start Last Admin Trade Name Freq PRN Reason Stop Dose Admin Acetaminophen 975 mg 07/26/23 23:36 Acetaminophen 325 Mg Tablet PO 07/26/23 23:37 STAT ONE Acetaminophen Confirm 07/26/23 23:58 Acetaminophen 325 Mg Tablet Administered 07/26/23 23:59 Dose 975 mg .ROUTE .STK-MED ONE Ketorolac Tromethamine 30 mg 07/27/23 00:02 07/27/23 00:06 Ketorolac Tromethamine 30 Mg/Ml Inj IM 07/27/23 00:03 30 mg STAT ONE Administration Ketorolac Tromethamine Confirm 07/27/23 00:04 Ketorolac Tromethamine 30 Mg/Ml Inj Administered 07/27/23 00:05 Dose 30 mg .ROUTE .STK-MED ONE - Progress Progress: improved Progress Note: 72-year-old female presents emergency department status post fall. Patient complains of pain from her right shoulder down to her forearm. No hand pain. X-ray reveals a nondisplaced supracondylar fracture. Involved upper extremity placed in a sugar-tong splint with a sling. Patient neurovascular tact distally post splint application. Patient received Toradol and Tylenol for pain control. Pain well-controlled this time. She has no other complaints. Patient referred to the orthopedic clinic. Patient to follow-up in orthopedic clinic tomorrow morning. Plan of care discussed with patient. She agrees to follow-up as discussed. She voices no other complaints or concerns at this time. Formal read pending on x-rays of shoulder humerus and forearm. Portions of this note were created with voice recognition technology. There may be grammatical, spelling, punctuation or sound alike errors Complexity problem addressed is moderate. No critical care time. Complexity of data reviewed and analyzed is moderate. Test ordered test reviewed results analyzed and correlated clinically with history and physical examination. Risk of complication and or risk of morbidity/mortality patient management is low. Vital stable. Time spent to discharge patient is approximately 30 minutes. Plan of care established for shared decision making. No social determinants of health present impede follow-up. Portions of this note were created with voice recognition technology. There may be grammatical, spelling, punctuation or sound alike errors 07/27/23 01:24 Counseled pt/family regarding: diagnosis, need for follow-up, rad results - Departure Departure Disposition: Home Clinical Impression: Fall, Shoulder strain, Supracondylar fracture of femur Condition: Stable Critical Care Time: No Referrals: HOSPITAL,'S [Primary Care Provider] - Follow up/PCP as directed Additional Instructions: Discharge/Care Plan MAURO REDDING was seen on 07/27/23 in the Emergency Room. The patient was counseled regarding Diagnosis,Lab results, Imaging studies, need for follow up and when to return to the Emergency Room. Prescriptions given: Discharge Note I have spoken with the patient and/or caregivers. I have explained the patient's condition, diagnosis and treatment plan based on the information available to me at this time. I have answered the patient's and/or caregiver's questions and addressed any concerns. The patient and/or caregivers have as good understanding of the patient's diagnosis, condition and treatment plan as can be expected at this point. The vital signs have been stable. The patient's condition is stable and appropriate for discharge from the emergency department. The patient will pursue further outpatient evaluation with the primary care physician or other designated or consulting physician as outlined in the discharge instructions. The patient and/or caregivers are agreeable to this plan of care and follow-up instructions have been explained in detail. The patient and/or caregivers have received these instruction. The patient/and or caregivers are aware that any significant change in condition or worsening of symptoms should prompt an immediate return to this or the closest emergency department or call 911. Outpatient Orders: Ortho Referral Time Frame: 1 Day, Facility: [facility], Location: [facility]
[2023-07-26] MEDS ORDERED: TYLENOL 325 MG ONE (23:58)
[2023-07-27] MEDS ORDERED: TORAdol 30 mg Injection ONE (00:04)
[2023-07-27] MEDS: TORAdol 30 mg Injection IM ONE (00:06)
--- NOTE | 2023-07-27 01:13 | XRAY ---
CLINICAL HISTORY: pain COMPARISON: None. TECHNIQUE: The examination of the Right elbow is performed in AP, lateral, and oblique 3 views. FINDINGS: Fracture at the distal right humerus bone/supracondylar with no significant displacement. Elevated fat pads. Joint alignment is normal. Reduced bone density. Soft tissue swelling at elbow. IMPRESSION: Fracture at the distal right humerus bone/supracondylar with no significant displacement. DISCLAIMER:A subtle bone abnormality or fracture may not be readily apparent on x-rays, thus clinical correlation and further imaging including follow-up CT, MRI, or follow-up X-rays are advised as needed.[facility] was called at [phone] at 12:05 AM MAINFRAME SOFTWARE DEVELOPER, 07/27/2023 and results were verbally communicated to Laura Solis. Electronically Signed by: Ondina Parkinson MD. (07/27/2023 01:09:03 EDT)
--- NOTE | 2023-07-27 01:19 | XRAY ---
CLINICAL HISTORY: pain COMPARISON: None. TECHNIQUE: There examination of the right forearm is performed in AP and lateral 2 views. FINDINGS: No fracture is seen in the radius and ulna bones. Reduced bone density. Soft tissue appears normal in the forearm. Fracture at the distal right humerus bone/supracondylar with no significant displacement. IMPRESSION: 1. No fracture is seen in the radius and ulna bones. 2. Fracture at the distal right humerus bone/supracondylar with no significant displacement. DISCLAIMER:A subtle bone abnormality or fracture may not be readily apparent on x-rays, thus clinical correlation and further imaging including follow up CT, MRI, or follow up x-rays are advised as needed.[facility] was called at [phone] at 12:05 AM TRAVELING PLANT OPERATOR, 07/27/2023 and results were verbally communicated to [employer] [facility]. Electronically Signed by: Ondina Parkinson MD. (07/27/2023 01:15:23 EDT)
[2023-07-27 01:24] VITALS: O2SAT 97
[2023-07-27 01:55] VITALS: BP 154/88; PULSE 76
--- NOTE | 2023-07-27 09:23 | XRAY ---
Indication: Pain following fall. Comparison: None 2 view right humerus demonstrates nondisplaced distal supracondylar acute transverse fracture. Elsewhere osteopenia and mild acromioclavicular degenerative changes. No other bony, articular, or soft tissue abnormalities.
--- NOTE | 2023-07-27 09:23 | XRAY ---
Indication: Pain following fall. Comparison: None 3 view right shoulder demonstrates osteopenia, mild acromioclavicular degenerative changes, high riding humeral head commonly seen with rotator cuff tears, and left carotid calcifications. No other bony, articular, or soft tissue abnormalities.
== END 2023-07-27 01:58 | disposition home or self-care (01) ==
LOC: ED 23:18
DX: S42.414A Nondisplaced simple supracondylar fracture without intercondylar fracture of right humerus, initial encounter for closed fracture (principal); S46.911A Strain of unspecified muscle, fascia and tendon at shoulder and upper arm level, right arm, initial encounter; W01.0XXA Fall on same level from slipping, tripping and stumbling without subsequent striking against object, initial encounter; E78.5 Hyperlipidemia, unspecified; Z79.899 Other long term (current) drug therapy; Z72.0 Tobacco use
CPT/HCPCS: 73030; 73060; 73080; 73090; 96372; 99284; J1885; A9270-GY

== ENCOUNTER 2024-06-21 15:21 | Emergency (ER) | payer OTHER ==
--- NOTE | 2024-06-21 15:29 | ERPHSYRPT ---
- History of Present Illness Time Seen by Provider: 06/21/24 15:29 Source: patient, family Exam Limitations: no limitations Physician History: This is an obese 73-year-old white female patient brought to the emergency room by family and is a patient of the [facility]. In the last 3 weeks, the patient has had complaints of bilateral lower extremity numbness and pain especially when up and ambulating. The pain subsides when she stops ambulating and lays down. She denies chest pain. She denies shortness of breath. Patient has a [id number] tobacco smoking history. Patient has a history of anxiety, hyperlipidemia, COPD, hypothyroidism, irritable bowel syndrome, osteoporosis, bipolar disorder and depression. She did not suffer any acute injury. Method of Injury: other (No specific injury) Occurred: other (3 weeks) Quality: aching, other (Numbness) Severity of Pain-Max: moderate Severity of Pain-Current: mild Lower Extremities Pain: leg: bilateral, knee: bilateral, thigh: bilateral, foot: bilateral, ankle: bilateral Modifying Factors: Improves With: movement (Ambulation worsens) Associated Symptoms: none Allergies/Adverse Reactions: Influenza Virus Vaccines Allergy (Verified 06/21/24 15:29) Penicillins Allergy (Verified 06/21/24 15:29) Home Medications: Clonazepam [Klonopin] 0.5 mg PO BID 01/15/22 [History] Albuterol Sulfate [Albuterol Sulfate Hfa] 2 puff PO QID PRN 03/04/22 [History] Atorvastatin Calcium [Lipitor] 40 mg PO HS 03/04/22 [History] Fluticasone Propion/Salmeterol [Fluticasone-Salmeterol 250-50] 1 puff PO BID PRN 03/04/22 [History] Levothyroxine Sodium 50 Mcg [Synthroid 50 Mcg] 50 mcg PO DAILY 03/04/22 [History] Melatonin 1 tab PO HS 03/04/22 [History] Quetiapine Fumarate 200 mg PO BID 03/04/22 [History] Cyclobenzaprine HCl 10 mg [Cyclobenzaprine 10 MG] 10 mg PO BID PRN 07/26/23 [History] Trazodone HCl 200 mg PO HS 07/26/23 [History] Hx Tetanus, Diphtheria Vaccination/Date Given: No Hx Influenza Vaccination/Date Given: No Hx Pneumococcal Vaccination/Date Given: No Travel Risk - International Travel Have you traveled outside of the country in past 3 weeks: No - Emerging Infectious Disease Are you exhibiting symptoms associated with any current EIDs: No - Review of Systems Constitutional: No Symptoms Eyes: No Symptoms Ears, Nose, & Throat: No Symptoms Respiratory: No Symptoms Cardiac: No Symptoms Genitourinary Symptoms: No Symptoms Musculoskeletal: Other (Bilateral lower extremity pain especially with ambulation) Skin: Other Neurological: No Symptoms Psychological: No Symptoms Endocrine: No Symptoms Hematologic/Lymphatic: No Symptoms Immunological/Allergic: No Symptoms All Other Systems: Reviewed and Negative - Past Medical History Pertinent Past Medical History: Yes Cardiac History: High Cholesterol Respiratory History: COPD Endocrine Medical History: Hypothyroidism Musculoskeletal History: Osteoporosis GI Medical History: Irritable Bowel Psycho-Social History: Anxiety, Bipolar, Depression Other Medical History: Insomnia - taken from medical records, lymphoma - Past Surgical History Past Surgical History: Yes Musculoskeletal: Orthopedic Surgery Female Surgical History: Tubal Ligation, Lumpectomy Other Surgical History: lumpectomy in breast several times, lump in foot, biopsy of cervix that was precancerous - Social History Smoking Status: Current every day smoker How long have you smoked: 60 years Exposure to second hand smoke: Yes Drug Use: none Patient Lives Alone: No - Social Determinants of Health Will the patient participate in the screening: Yes Do you worry about a steady place to live?: No In the past 12 months,have you had to go without utilities?: No Transportation Issues: No Has anyone in your support network made you feel unsafe?: No Have you or anyone in your house had to go w/o enough food: No - Nursing Vital Signs Nursing Vital Signs: Initial Vital Signs Temperature 97.2 F 06/21/24 15:37 Pulse Rate 62 06/21/24 15:37 Blood Pressure 126/72 06/21/24 15:37 O2 Sat by Pulse Oximetry 92 L 06/21/24 15:37 Pain Scale Pain Intensity 8 - Physical Exam General Appearance: no apparent distress, alert, anxiety Eyes, Ears, Nose, Throat Exam: normal ENT inspection, moist mucous membranes Neck Exam: normal inspection, non-tender, supple, full range of motion Cardiovascular/Respiratory Exam: chest non-tender, no respiratory distress Gastrointestinal/Abdominal Exam: non-tender Back Exam: normal inspection, normal range of motion, No CVA tenderness, No vertebral tenderness Hips Exam: bilateral: non-tender, normal inspection, normal range of motion, no evidence of injury Legs Exam: bilateral leg: normal inspection, normal range of motion, no evidence of injury, soft tissue tenderness (Mild) Knees Exam: bilateral knee: normal inspection, normal range of motion, no evidence of injury, soft tissue tenderness (Mild without ulcerations or skin) Ankle Exam: bilateral ankle: normal inspection, normal range of motion, no e vidence of injury, soft tissue tenderness (Mild without skin ulcerations) Foot Exam: bilateral foot: normal inspection, normal range of motion, no evidence of injury, soft tissue tenderness (Mild without skin ulcerations) Neuro/Tendon Exam: normal sensation, normal motor functions, normal tendon functions, responds to pain, no evidence tendon injury Mental Status Exam: alert, oriented x 3, cooperative Skin Exam: normal color, warm, dry, other (The skin of her legs is dry but there is no evidence of any necrosis, or ischemic ulcerations) SpO2 Interpretation: borderline oxygenation O2 Delivery: Room Air - Course Nursing assessment & vital signs reviewed: Yes Ordered Tests: Active Orders 24 hr Category Date Time Status VENOUS BILATERAL EXTREMITY [US] Stat Exams 06/21/24 16:48 Taken BMP Stat Lab 06/21/24 16:20 Completed D-DIMER QUANTITATIVE Stat Lab 06/21/24 16:20 Completed MAG [MAGNESIUM] Stat Lab 06/21/24 16:20 Completed Lab/Rad Data: Laboratory Result Diagrams 06/21/24 16:20 Laboratory Results 06/21/24 06/21/24 Range/Units 16:20 16:20 D-Dimer 1.42 H* (0.0-0.50) mg/L Sodium 138 (135-145) mmol/L Potassium 4.0 (3.5-5.1) mmol/L Chloride 103 (98-107) mmol/L Carbon Dioxide 28 (22-30) mmol/L Anion Gap 10.7 (5-15) MEQ/L BUN 10 (7-17) mg/dL Creatinine 0.64 (0.52-1.04) mg/dL Estimated GFR 92.1 ML/MIN Glucose 99 (74-106) mg/dL Calcium 8.6 (8.4-10.2) mg/dL Magnesium 1.9 (1.6-2.3) mg/dL - Progress Progress: unchanged Progress Note: 06/21/24 16:12 My medical decision making of the assignment of low to moderate complexity is based on review of the patient's past medical history, review the patient's medication list, reviewed patient drug allergy list, history present illness and physical findings on examination. The workup in this patient includes BMP, magnesium level, D-dimer level. If the D-dimer level is elevated we will order bilateral lower extremity venous Dopplers to evaluate for DVT. Differential diagnosis includes but is not limited to claudication, deep venous thromboses, electrolyte abnormalities 06/21/24 17:44 I interpreted the patient's laboratory data results. The D-dimer is elevated. We ordered a bilateral lower extremity venous Doppler. Bilateral lower extremity venous Doppler was performed on the communications technician, blood bank technologist, reports the preliminary results as negative for DVT. Counseled pt/family regarding: lab results, diagnosis, need for follow-up Medical Desision Making - Independent Historian Additional History obtained from: Family - Diagnostic Testing Diagnostic test were ordered, analyzed, and reviewed by me: Yes Radiological Interpretation: Reviewed by me, Teleradiologist Report - Risk of complications Low Risk: Low risk of morbidity from additional dx testing or treatment - Departure Departure Disposition: Home Clinical Impression: Bilateral lower extremity pain, Claudication of both lower extremities Condition: Stable Critical Care Time: No Referrals: HOSPITAL,'S [Primary Care Provider] - Follow up/PCP as directed Additional Instructions: Take all your medications as prescribed. Call your primary care provider on 06/24/2024, to make arrangements for follow-up appointment to be seen in the next 3 to 5 days for assessment of your bilateral lower extremity/leg pain
[2024-06-21 15:39] VITALS: TEMP 97.2
[2024-06-21 16:36] LABS: ANION GAP 10.7 MEQ/L (5-15); Calcium 8.6 mg/dL (8.4-10.2); Creatinine 1 0.64 mg/dL (0.52-1.04); EST GLOMERULAR FILTRATION RATE 92.1 ML/MIN; MAGNESIUM 1.9 mg/dL (1.6-2.3)
[2024-06-21 17:07] VITALS: O2SAT 93
[2024-06-21 18:06] VITALS: BP 92/67; PULSE 67; RESP 20
--- NOTE | 2024-06-22 07:15 | XRAY ---
Indication: Bilateral leg pain. Elevated d-dimer. Two-dimensional sonogram and color Doppler imaging major venous vessels left and right leg performed. Comparison: None No thrombus seen in the examined deep venous vessels left and right leg including greater saphenous vein. Veins demonstrate normal compressibility. Venous waveforms are normal with and without augmentation. Impression: Left and right leg negative for DVT. Comment: Preliminary report was given.
== END 2024-06-21 18:11 | disposition home or self-care (01) ==
LOC: ED 15:21
DX: I73.9 Peripheral vascular disease, unspecified (principal); M79.604 Pain in right leg; M79.605 Pain in left leg; R20.2 Paresthesia of skin; E78.5 Hyperlipidemia, unspecified; Z79.899 Other long term (current) drug therapy; Z72.0 Tobacco use
CPT/HCPCS: 36415; 80048; 83735; 85379; 93970; 99284